=== PATIENT | male | born 1950 | race Two or more races ===

== ENCOUNTER 2024-08-09 09:39 | Emergency (ER) | payer OTHER, MEDICAID ==
[~2024-08-09] VITALS: Ht 180.3 cm; Wt 64.6 kg
[~2024-08-09 09:39] MED LIST: AMIO200T33 PO; PRAV20TA3 PO; RIV20T PO
--- NOTE | 2024-08-09 11:06 | ED.PDOC ---
GI ASSESSMENT HPI Comments 73-year-old male with PMHx A-Fib presents with a chief complaint of constipation x 2 weeks with associated abdomen pain. Patient states that his pain is localized to his diffuse abdomen, nonradiating, and rates his pain 9/10 at this time. Patient mentions that he has been using fleet enemas, laxatives, and Metamucil, but states that he has not been able to pass stool. Patient denies use of narcotic pain medication. No other symptoms or modifying factors present at this time. Chief Complaint: Constipation Time Seen by MD: 10:45 Primary Care Provider: DENISE Warner Notes: Medications, Allergies Allergies: Uncoded Allergies: NONE (Allergy, Unknown, 04/24/24) Home Meds Reported Medications Pravastatin Sodium (PRAVACHOL TABLET) 20 Mg Tb, 1 TAB PO DAILY for HIGH CHOLESTEROL, #30 TAB 5 Refills 04/24/24 Amiodarone Hcl (Amiodarone Hcl) 200 Mg Tab, 200 MG PO DAILY for ARRHYTHMIA 04/24/24 Rivaroxaban (Xarelto Tablet) 20 Mg Tb, 20 MG PO DAILY for A. FIB, TAB 04/24/24 Information Source: Patient Mode of Arrival: Ambulatory Timing: Days Duration: Since onset Prehospital treatment: None Quality: Sharp Vomitus: None Stool: Impaction Severity: Moderate Recent: None Recent Hx of: Abdominal Surgery (HERNIA SURGERY) Pain Location: Diffuse Associated sign and symptoms: Constipation, Abdominal Pain Past Medical History PAST MEDICAL HISTORY: AFIB Past Medical History (Other): BOWEL BLOCKAGE Surgical History: Denies all surgeries Family History Family History: Reviewed,noncontributory to illness Social History Smoker: Non-Smoker Alcohol: Denies ETOH Use Drugs: Denies Drug Use Lives In: Home Constitutional: denies: chills, diaphoresis, fatigue, fever, malaise, sweats, weakness, others EENTM: denies: blurred vision, double vision, ear bleeding, ear discharge, ear drainage, ear pain, ear ringing, eye pain, eye redness, hearing loss, mouth pain, mouth swelling, nasal discharge, nose bleeding, nose congestion, nose pain, photophobia, tearing, throat pain, throat swelling, voice changes, others Respiratory: denies: cough, hemoptysis, orthopnea, SOB at rest, shortness of breath, SOB with excertion, stridor, wheezing, others Cardiovascular: denies: chest pain, dizzy spells, diaphoresis, Dyspnea on exertion, edema, irregular heart beat, left arm pain, lightheadedness, palpitations, PND, syncope, others Gastrointestinal: reports: abdominal pain, constipated; denies: abdomen distended, blood streaked bowels, diarrhea, dysphagia, difficulty swallowing, hematemesis, melena, nausea, poor appetite, poor fluid intake, rectal bleeding, rectal pain, vomiting, others Genitourinary: denies: burning, dysuria, flank pain, frequency, hematuria, incontinence, penile discharge, penile sore, pain, testicle pain, testicle swelling, urgency, others Neurological: denies: dizziness, fainting, headache, left sided numbness, left sided weakness, numbness, paresthesia, pre-existing deficit, right sided numbness, right sided weakness, seizure, speech problems, tingling, tremors, weakness, others Musculoskeletal: denies: back pain, gout, joint pain, joint swelling, muscle pain, muscle stiffness, neck pain, others Integumetry: denies: bruises, change in color, change in hair/nails, dryness, laceration, lesions, lumps, rash, wounds, others Allergic/Immunocompromised: denies: Difficulty Healing, Frequent Infections, Hives, Itching, others Hematologic/Lymphatic: denies: anemia, blood clots, easy bleeding, easy bruising, swollen glands, others Endocrine: denies: excessive hunger, excessive sweating, excessive thirst, excessive urination, flushing, intolerance to cold, intolerance to heat, unexplained weight gain, unexplained weight loss, others Psychiatric: denies: anxiety, bipolar disorder, depression, hopeless, panic disorder, schizophrenia, sleepless, suicidal, others All Other Systems: Reviewed and Negative Physical Exam General Appearance: Moderate Distress, Normal HEENT: Normal ENT Inspection, Pharynx Normal, TMs Normal Neck: Full Range of Motion, Non-Tender, Normal, Normal Inspection Respiratory: Chest Non-Tender, Lungs Clear, No Accessory Muscle Use, No Respiratory Distress, Normal Breath Sounds Cardiovascular: No Edema, No JVD, No Murmur, No Gallop, Normal Peripheral Pulses, Regular Rate/Rhythm Breast Exam: Deferred Gastrointestinal: No Organomegaly, Non Tender, No Pulsatile Mass, Normal Bowel Sounds, Soft Genitalia: Deferred Pelvic: Deferred Rectal: Deferred Extremities: No calf tenderness, Normal capillary refill, Normal inspection, Normal range of motion, Non-tender, No pedal edema Musculoskeletal : Apperance: Normal Neurologic: Alert, 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 Was a procedure done?: No GI differential Dx Differential Diagnosis: Constipation, Diverticular disease, Esophagitis, Gastritis/PUD, Gastroenteritis X-Ray, Labs, Meds, VS Vital Signs Date Time Temp Pulse Resp B/P (MAP) Pulse Ox O2 Delivery O2 Flow Rate FiO2 08/09/24 09:57 98.6 94 16 155/82 (106) 98 Lab Test 08/09/24 10:41 Range/Units White Blood Count 8.4 4.4-10.8 10^3/uL Red Blood Count 4.77 4.5-5.90 10^6/uL Hemoglobin 13.9 13.5-17.5 g/dL Hematocrit 41.1 41.0-53.0 % Mean Corpuscular Volume 86.2 80.0-100.0 fL Mean Corpuscular Hemoglobin 29.2 28.0-32.0 pg Mean Corpuscular Hemoglobin Concent 33.9 32.0-36.0 g/dL Red Cell Distribution Width 15.6 H 11.8-14.3 % Platelet Count 300 140-450 10^3/uL Mean Platelet Volume 8.0 6.9-10.8 fL Neutrophils (%) (Auto) 82.6 H 37.0-80.0 % Lymphocytes (%) (Auto) 10.9 10.0-50.0 % Monocytes (%) (Auto) 5.8 0.0-12.0 % Eosinophils (%) (Auto) 0.4 0.0-7.0 % Basophils (%) (Auto) 0.3 0.0-2.0 % Neutrophils # (Auto) 6.9 1.6-8.6 10 ^3/uL Lymphocytes # (Auto) 0.9 0.4-5.4 10 ^3/uL Monocytes # (Auto) 0.5 0-1.3 10 ^3/uL Eosinophils # (Auto) 0 0-0.8 10 ^3/uL Basophils # (Auto) 0 0-0.2 10 ^3/uL Nucleated Red Blood Cells 0.0 % Sodium Level 141 136-145 mmol/L Potassium Level 4.3 3.5-5.1 mmol/L Chloride Level 103 98-107 mmol/L Carbon Dioxide Level 27 20-31 mmol/L Anion Gap 11 5-15 Blood Urea Nitrogen 10 9-23 mg/dL Creatinine 1.17 0.700-1.30 mg/dL Glomerular Filtration Rate Calc 65 >90 mL/min BUN/Creatinine Ratio 8.5 L 10.0-20.0 Serum Glucose 110 H 74-106 mg/dL Calcium Level 10.3 8.7-10.4 mg/dL Patient alert. Complaining of not having a bowel movement. Recently had inguinal surgery. Vitals stable. Abdomen is soft. WBC within normal limits. Hemoglobin within normal limits. Continue monitoring. KUB does not show any acute process. Constipation. WBC within normal limits. Was given prescription of Colace Flagyl. On re-evaluation Abdomen is soft nontender. No sign of distress. No leg swelling. No shortness a breath. Explained to the patient. Was told to follow up with his primary care physician. Was told to come back if there is any problem. Time of 1ST Reevaluation: 11:15 Reevaluation 1ST: Improved Time of 2ND Reevaluation: 13:12 Reevaluation 2ND: Improved Patient Education/Counseling: Diagnosis, Treatment, Prognosis Family Education/Counseling: Diagnosis, Treatment, Prognosis Departure 1 Departure Time of Disposition: 11:35 Impression: Primary Impression: Constipation Qualified Codes: K59.01 - Slow transit constipation Disposition: 01 HOME / SELF CARE / HOMELESS Condition: Good e-Prescriptions Docusate Sodium (Colace) 100 Mg Cap 1 CAP PO BID for 3 Days, #6 CAP Prov: DOLLY ARANA MD 08/09/24 Metronidazole (Flagyl) 500 Mg Tab 1 TAB PO TID for 5 Days, #15 TAB Prov: DOLLY ARANA MD 08/09/24 Discharged With: Self Critical Care Note Critical Care Time?: No Stability Stability form required: No Heart Score Heart Score: Heart Score Response (Comments) Value History N/A 0 EKG N/A 0 Age N/A 0 Risk Factors N/A 0 Troponin N/A 0 Total 0 I personally scribed for DOLLY ARANA MD ([email or web address]) on 08/09/24 at 11:06. Electronically submitted by Baldev Sheth [email or web address]). DOLLY ARANA MD Aug 09, 2024 11:06
[2024-08-09 11:17] LABS: Basophils # (auto) 0 10 ^3/uL (0-0.2); Basophils % (auto) 0.3 % (0.0-2.0); Eosinophils # (auto) 0 10 ^3/uL (0-0.8); Eosinophils % (auto) 0.4 % (0.0-7.0); Hematocrit 41.1 % (41.0-53.0); Hemoglobin 13.9 g/dL (13.5-17.5); Lymphocytes # (auto) 0.9 10 ^3/uL (0.4-5.4); Lymphocytes % (auto) 10.9 % (10.0-50.0); Mean Corpuscular Hemoglobin 29.2 pg (28.0-32.0); Mean Corpuscular Hgb Conc. 33.9 g/dL (32.0-36.0); Mean Corpuscular Volume 86.2 fL (80.0-100.0); Monocytes # (auto) 0.5 10 ^3/uL (0-1.3); Monocytes % (auto) 5.8 % (0.0-12.0); Neutrophils # (auto) 6.9 10 ^3/uL (1.6-8.6); Neutrophils % (auto) 82.6 % (37.0-80.0); Platelet Count (auto) 300 10^3/uL (140-450); Red Blood Cells 4.77 10^6/uL (4.5-5.90); Red Cell Distribution Width 15.6 % (11.8-14.3); White Blood Cell 8.4 10^3/uL (4.4-10.8)
[2024-08-09 11:33] LABS: Chloride 103 mmol/L (98-107); Potassium 4.3 mmol/L (3.5-5.1); Sodium 141 mmol/L (136-145)
[2024-08-09 11:34] LABS: Anion Gap 11 (5-15); Calcium 10.3 mg/dL (8.7-10.4); Carbon Dioxide 27 mmol/L (20-31)
[2024-08-09 11:39] LABS: BUN/Creatinine Ratio 8.5 (10.0-20.0); Blood Urea Nitrogen 10 mg/dL (9-23)
[2024-08-09 11:40] LABS: Glucose 110 mg/dL (74-106)
--- NOTE | 2024-08-09 12:10 | DVH ---
Date: 08/09/2024 11:44 AM Examination: XY KUB ABDOMEN SINGLE VIEW History: contipation Comparison: None TECHNIQUE: Frontal views of the abdomen was obtained. FINDINGS: Bowel gas pattern is unremarkable. The lung bases are unremarkable. No acute osseous abnormality identified. IMPRESSION: Nonobstructive bowel gas pattern. Large stool burden.
[2024-08-09] MEDS ORDERED: METR-344 PO (13:14)
[2024-08-09] MEDS ORDERED: DOCU-94 PO (13:14)
[2024-08-09] MEDS: DOCUSATE SOD 100 MG CAP PO ONE (14:17)
[2024-08-09 14:18] VITALS: BP 134/77; PULSE 78; RESP 17; TEMP 98.8; O2SAT 99
== END 2024-08-09 14:21 | disposition home or self-care (01) ==
LOC: ER 09:39
DX: K59.00 Constipation, unspecified (principal); Z79.01 Long term (current) use of anticoagulants; Z79.899 Other long term (current) drug therapy
CPT/HCPCS: 36415; 74018; 80048; 85025

== ENCOUNTER 2024-08-19 08:35 | Emergency (ER) | payer OTHER, MEDICAID ==
[~2024-08-19] VITALS: Ht 180.3 cm; Wt 68.9 kg
[~2024-08-19 08:35] MED LIST changes: +DOCU-94 PO; +METR-344 PO
[2024-08-19] MEDS ORDERED: AZITHROMYCIN 250 MG TAB PO ONE (08:45)
[2024-08-19] MEDS ORDERED: methylPREDNISolone SOD SUCC 125 MG/2 ML VL IV ONE (08:45)
[2024-08-19] MEDS ORDERED: ALBUTEROL SULF 2.5 MG/0.5ML(0.5%) NEB SOLN NEB ONE (08:45)
[2024-08-19] MEDS ORDERED: IPRATROPIUM BROM 0.5 MG/2.5ML INH SOL NEB ONE (08:45)
[2024-08-19 08:56] VITALS: RESP 18
[2024-08-19] MEDS: IOHEXOL 300 MG/ML 100ML BOTTLE IJ ONE (09:04)
[2024-08-19 09:16] LABS: Basophils # (auto) 0 10 ^3/uL (0-0.2); Basophils % (auto) 0.5 % (0.0-2.0); Eosinophils # (auto) 0.2 10 ^3/uL (0-0.8); Eosinophils % (auto) 3.3 % (0.0-7.0); Hematocrit 42.5 % (41.0-53.0); Hemoglobin 14.4 g/dL (13.5-17.5); Lymphocytes # (auto) 1.1 10 ^3/uL (0.4-5.4); Lymphocytes % (auto) 14.1 % (10.0-50.0); Mean Corpuscular Hemoglobin 29.4 pg (28.0-32.0); Mean Corpuscular Hgb Conc. 33.8 g/dL (32.0-36.0); Mean Corpuscular Volume 86.7 fL (80.0-100.0); Monocytes # (auto) 0.6 10 ^3/uL (0-1.3); Monocytes % (auto) 8.3 % (0.0-12.0); Neutrophils # (auto) 5.5 10 ^3/uL (1.6-8.6); Neutrophils % (auto) 73.8 % (37.0-80.0); Nucleated Red Blood Cells % 0.2 %; Platelet Count (auto) 371 10^3/uL (140-450); Red Cell Distribution Width 16.2 % (11.8-14.3); White Blood Cell 7.5 10^3/uL (4.4-10.8)
--- NOTE | 2024-08-19 09:22 | DVH ---
EXAM: XY CHEST PORTABLE Indication: sob Technique: Single frontal view of the chest was obtained Comparison: None FINDINGS: Lines and Tubes: None Lungs: No focal consolidation. Pleura: No effusion. No pneumothorax. Cardiomediastinal contours: Unremarkable Bones: No acute osseous abnormality. IMPRESSION: No acute cardiopulmonary disease.
[2024-08-19 09:29] LABS: Chloride 107 mmol/L (98-107); Sodium 140 mmol/L (136-145)
[2024-08-19 09:30] LABS: Anion Gap 8 (5-15); Calcium 10.1 mg/dL (8.7-10.4); Carbon Dioxide 25 mmol/L (20-31)
[2024-08-19 09:35] VITALS: TEMP 98.6
[2024-08-19 09:35] LABS: BUN/Creatinine Ratio 8.5 (10.0-20.0); Blood Urea Nitrogen 9 mg/dL (9-23); Glucose 126 mg/dL (74-106); Potassium 3.4 mmol/L (3.5-5.1)
[2024-08-19] MEDS: SODIUM CHLORIDE 0.9% 1,000 ML IV ONE (09:37)
[2024-08-19] MEDS: ONDANSETRON HCL 4 MG/2 ML VIAL IV ONE (09:37)
[2024-08-19] MEDS: MORPHINE SULFATE 4 MG/ML SYR/VIAL IV ONE (09:38)
--- NOTE | 2024-08-19 10:40 | DVH ---
Exam: CT CT AB PEL WITH IV CON ONLY History: abdominal pain COMPARISON: None Technique: Multidetector spiral CT of the abdomen and pelvis was performed from lung bases to pubic symphysis. Intravenous contrast was administered during this examination. Portal venous imaging was obtained. Axial, coronal and sagittal multiplanar reformats were performed by the technologist on a separate workstation. Radiation Dose : Abdomen/Pelvis: CTDIvol 7.02 mGy, DLP 381.53 mGy*cm. CONTRAST: Type of contrast: Omni 300 Contrast injected: 100 mL Findings: Lung Bases: No acute or significant lung base finding. Normal heart size. No pleural or pericardial effusion. Liver: The liver is normal in size. No focal lesions. Normal hepatic vascular enhancement. Gallbladder and biliary Tree: Unremarkable Spleen: Unremarkable Pancreas: The pancreas is normal in appearance without focal lesions or abnormal enhancement. Adrenal Glands: Unremarkable Kidneys: Heterogeneously enhancing mass lower pole of the right kidney measuring up to 111 mm. No d efinite vascular invasion. No hydronephrosis. Right upper pole renal cyst also noted. Bladder: Unremarkable Bowel: The stomach is grossly normal in appearance. Small bowel and colon are normal in caliber and d istribution. The appendix is not visualized; however, no secondary findings of acute appendicitis marimar ntified. Ascites: Absent Lymphadenopathy: No mesenteric, retroperitoneal or periportal lymphadenopathy. Abdominal wall and Mesentery: Unremarkable. Vasculature: The visualized abdominal aorta is normal in size and caliber. There is calcified atheros clerotic plaque involving the aorta and its branches. Abdominal and pelvic vessels demonstrate normal enhancement. Pelvic Organs: Unremarkable Musculoskeletal: No aggressive focal bony lesions, acute fractures or dislocation. IMPRESSION: 1. Large suspicious right renal mass measuring up to 111 mm concerning for renal cell carcinoma. Uro logy evaluation and resection is recommended. Lesion would be amenable to CT-guided biopsy if clinica lly indicated. Radiation optimization: All CT scans at this facility use at least one of these dose optimization vicky hniques: Automated exposure control mA and/or kV adjustment per patient size (includes targeted exams where dose is matched to clinical indication) or iterative reconstruction. HS:Y
--- NOTE | 2024-08-19 10:43 | ED.PDOC ---
GI ASSESSMENT HPI Comments 73-year-old male with PMHx A-Fib presents with a chief complaint of abdominal pain x 2 weeks with associated constipation. Patient states that he has been "blocked" for 2 weeks. Patient mentions that he was seen here two weeks ago by Dr. Arana and was only prescribed colace with no CT scan. Patient mentions that he took the Colace and also took Ex-Lax and Lactulose, but still has not had a bowel movement. Patient reports that he "cannot eat, cannot sleep, I am just miserable". No other symptoms or modifying factors present at this time. Chief Complaint: Abdominal Pain Time Seen by MD: 10:35 Primary Care Provider: DENISE Warner Notes: Medications, Allergies Allergies: Coded Allergies: No Known Drug Allergy (Verified Allergy, Unknown, 08/19/24) Uncoded Allergies: NONE (Allergy, Unknown, 04/24/24) Home Meds Active Scripts Lactulose (Lactulose) 10 Gm/15 Ml Ale, 20 GM PO TID, #500 ML take it 3 times a day till you have good bowel movements then take it as needed for constipation Prov:VERNON VALDEZ MD 08/19/24 Docusate Sodium (Colace) 100 Mg Cap, 1 CAP PO BID for 3 Days, #6 CAP Prov:DOLLY ARANA MD 08/09/24 Metronidazole (Flagyl) 500 Mg Tab, 1 TAB PO TID for 5 Days, #15 TAB Prov:DOLLY ARANA MD 08/09/24 Reported Medications Pravastatin Sodium (PRAVACHOL TABLET) 20 Mg Tb, 1 TAB PO DAILY for HIGH CHOLESTEROL, #30 TAB 5 Refills 04/24/24 Amiodarone Hcl (Amiodarone Hcl) 200 Mg Tab, 200 MG PO DAILY for ARRHYTHMIA 04/24/24 Rivaroxaban (Xarelto Tablet) 20 Mg Tb, 20 MG PO DAILY for A. FIB, TAB 04/24/24 Information Source: Patient Mode of Arrival: Ambulatory Timing: Weeks Duration: Intermittent Prehospital treatment: None Quality: Aching Vomitus: None Stool: Impaction Severity: Moderate Recent: Laxative Use Recent Hx of: Constipation Pain Location: Diffuse Associated sign and symptoms: Constipation Past Medical History PAST MEDICAL HISTORY: AFIB Surgical History: Denies all surgeries Family History Family History: Reviewed,noncontributory to illness Social History Smoker: Non-Smoker Alcohol: Denies ETOH Use Drugs: Denies Drug Use Lives In: Home Constitutional: denies: chills, diaphoresis, fatigue, fever, malaise, sweats, weakness, others EENTM: denies: blurred vision, double vision, ear bleeding, ear discharge, ear drainage, ear pain, ear ringing, eye pain, eye redness, hearing loss, mouth pain, mouth swelling, nasal discharge, nose bleeding, nose congestion, nose pain, photophobia, tearing, throat pain, throat swelling, voice changes, others Respiratory: denies: cough, hemoptysis, orthopnea, SOB at rest, shortness of breath, SOB with excertion, stridor, wheezing, others Cardiovascular: denies: chest pain, dizzy spells, diaphoresis, Dyspnea on exertion, edema, irregular heart beat, left arm pain, lightheadedness, palpitations, PND, syncope, others Gastrointestinal: reports: abdominal pain, constipated; denies: abdomen distended, blood streaked bowels, diarrhea, dysphagia, difficulty swallowing, hematemesis, melena, nausea, poor appetite, poor fluid intake, rectal bleeding, rectal pain, vomiting, others Genitourinary: denies: burning, dysuria, flank pain, frequency, hematuria, incontinence, penile discharge, penile sore, pain, testicle pain, testicle swelling, urgency, others Neurological: denies: dizziness, fainting, headache, left sided numbness, left sided weakness, numbness, paresthesia, pre-existing deficit, right sided numbness, right sided weakness, seizure, speech problems, tingling, tremors, weakness, others Musculoskeletal: denies: back pain, gout, joint pain, joint swelling, muscle pain, muscle stiffness, neck pain, others Integumetry: denies: bruises, change in color, change in hair/nails, dryness, laceration, lesions, lumps, rash, wounds, others Allergic/Immunocompromised: denies: Difficulty Healing, Frequent Infections, Hives, Itching, others Hematologic/Lymphatic: denies: anemia, blood clots, easy bleeding, easy bruising, swollen glands, others Endocrine: denies: excessive hunger, excessive sweating, excessive thirst, excessive urination, flushing, intolerance to cold, intolerance to heat, unexplained weight gain, unexplained weight loss, others Psychiatric: denies: anxiety, bipolar disorder, depression, hopeless, panic disorder, schizophrenia, sleepless, suicidal, others All Other Systems: Reviewed and Negative Physical Exam General Appearance: No Apparent Distress, Normal HEENT: Normal ENT Inspection, Pharynx Normal, TMs Normal Neck: Full Range of Motion, Non-Tender, Normal, Normal Inspection Respiratory: Chest Non-Tender, Lungs Clear, No Accessory Muscle Use, No Respiratory Distress, Normal Breath Sounds Cardiovascular: No Edema, No JVD, No Murmur, No Gallop, Normal Peripheral Pulses, Regular Rate/Rhythm Breast Exam: Deferred Gastrointestinal: Diffuse, No Organomegaly, No Pulsatile Mass, Normal Bowel Sounds, Soft, Tenderness Genitalia: Deferred Pelvic: Deferred Rectal: Deferred Extremities: No calf tenderness, Normal capillary refill, Normal inspection, Normal range of motion, Non-tender, No pedal edema Musculoskeletal : Apperance: Normal Neurologic: Alert, 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 Was a procedure done?: No GI differential Dx Differential Diagnosis: Bowel Obstruction, Constipation, Inflammatory BD, I schemic Bowel, Trauma intraabdominal, Dehydration, Electrolyte Imbalance, Bacterial X-Ray, Labs, Meds, VS Vital Signs Date Time Temp Pulse Resp B/P (MAP) Pulse Ox O2 Delivery O2 Flow Rate FiO2 08/19/24 12:38 81 15 140/83 (102) 96 08/19/24 10:03 77 16 152/77 (102) 100 08/19/24 10:02 77 16 152/77 08/19/24 09:38 89 14 159/84 08/19/24 09:35 98.6 89 14 159/84 (109) 96 98.6 08/19/24 09:16 96 17 100 Room Air 08/19/24 09:16 98.6 96 17 140/80 (100) 100 98.6 08/19/24 08:56 18 Room Air* 0 21 08/19/24 08:47 85 08/19/24 08:40 98.3 98 18 184/88 (120) 99 Lab Test 08/19/24 08:57 08/19/24 08:44 Range/Units White Blood Count 7.5 4.4-10.8 10^3/uL Red Blood Count 4.90 4.5-5.90 10^6/uL Hemoglobin 14.4 13.5-17.5 g/dL Hematocrit 42.5 41.0-53.0 % Mean Corpuscular Volume 86.7 80.0-100.0 fL Mean Corpuscular Hemoglobin 29.4 28.0-32.0 pg Mean Corpuscular Hemoglobin Concent 33.8 32.0-36.0 g/dL Red Cell Distribution Width 16.2 H 11.8-14.3 % Platelet Count 371 140-450 10^3/uL Mean Platelet Volume 7.7 6.9-10.8 fL Neutrophils (%) (Auto) 73.8 37.0-80.0 % Lymphocytes (%) (Auto) 14.1 10.0-50.0 % Monocytes (%) (Auto) 8.3 0.0-12.0 % Eosinophils (%) (Auto) 3.3 0.0-7.0 % Basophils (%) (Auto) 0.5 0.0-2.0 % Neutrophils # (Auto) 5.5 1.6-8.6 10 ^3/uL Lymphocytes # (Auto) 1.1 0.4-5.4 10 ^3/uL Monocytes # (Auto) 0.6 0-1.3 10 ^3/uL Eosinophils # (Auto) 0.2 0-0.8 10 ^3/uL Basophils # (Auto) 0 0-0.2 10 ^3/uL Nucleated Red Blood Cells 0.2 % Sodium Level 140 136-145 mmol/L Potassium Level 3.4 L 3.5-5.1 mmol/L Chloride Level 107 98-107 mmol/L Carbon Dioxide Level 25 20-31 mmol/L Anion Gap 8 5-15 Blood Urea Nitrogen 9 9-23 mg/dL Creatinine 1.06 0.700-1.30 mg/dL Glomerular Filtration Rate Calc 74 >90 mL/min BUN/Creatinine Ratio 8.5 L 10.0-20.0 Serum Glucose 126 H 74-106 mg/dL Calcium Level 10.1 8.7-10.4 mg/dL Troponin I High Sensitivity 30 </=54 ng/L POC Glucose 117 H 70-106 mg/dl Current Medications Medications (Trade) Dose Ordered Sig/Fady Route Start Time Stop Time Status Last Admin Sodium Chloride 1,000 ml @ 1,000 mls/hr Q1H ONCE IV 08/19/24 09:15 08/19/24 10:14 DC 08/19/24 09:37 Ondansetron HCl (Zofran) 4 mg ONCE ONCE IV 08/19/24 09:15 08/19/24 09:34 DC 08/19/24 09:37 Morphine Sulfate 4 mg ONCE ONCE IV 08/19/24 09:15 08/19/24 09:34 DC 08/19/24 09:38 Polyethylene Glycol/ Electrolytes (Golytely) 1 kit ONCE ONCE PO 08/19/24 11:30 08/19/24 11:31 DC 08/19/24 11:51 Time of 1ST Reevaluation: 11:05 Reevaluation 1ST: Unchanged Patient Education/Counseling: Diagnosis, Treatment, Prognosis Family Education/Counseling: Diagnosis, Treatment, Prognosis Departure 1 Departure Time of Disposition: 17:27 (Patient presented with abdominal pain that was concerning for possible appendicits, gastritis, cholecystitis, colitis, gastroenteritis, or orther possible surgical emergency. Data: 1. I ordered and reviewed the result of at least 3 labs including a CBC, BMP, and Urinalysis. 2. I independently interpreted the following tests: CT Abdoment and Pelvis is concerning for malignancy .Risk:This patient has a high risk of morbidity due to further diagnostic testing or treatment and may suffer from an acute abdominal process disorder. Fortunately workup reveals malignancy that is known to patient as well as constipation and discussed the case with Dr. MORGAN and patient can be safely discharged to home with outpatient follow up.) Impression: Primary Impression: Acute abdominal pain Additional Impressions: Constipation Qualified Codes: K59.00 - Constipation, unspecified Kidney mass Disposition: HOME / SELF CARE / HOMELESS Condition: Stable e-Prescriptions Lactulose (Lactulose) 10 Gm/15 Ml Ale 20 GM PO TID, #500 ML take it 3 times a day till you have good bowel movements then take it as needed for constipation Prov: VERNON VALDEZ MD 08/19/24 Critical Care Note Critical Care Time?: No Stability Stability form required: No I personally scribed for OTIS VILLALOBOS MD ([email or web address]) on 08/19/24 at 10:43. Electronically submitted by Baldev Sheth ([email or web address]). OTIS VILLALOBOS MD Aug 19, 2024 10:43
[2024-08-19] MEDS ORDERED: FLEET ENEMA(ADULT) 135 ML PR ONE (11:30)
[2024-08-19] MEDS: GOLYTELY 4L KIT PO ONE (11:51)
[2024-08-19] MEDS ORDERED: LACT10SO3 PO (12:33)
[2024-08-19 12:38] VITALS: BP 140/83; PULSE 81; RESP 15; O2SAT 96
== END 2024-08-19 13:13 | disposition home or self-care (01) ==
LOC: ER 08:35
DX: K59.00 Constipation, unspecified (principal); N28.89 Other specified disorders of kidney and ureter; I48.91 Unspecified atrial fibrillation; Z79.01 Long term (current) use of anticoagulants; Z79.899 Other long term (current) drug therapy
CPT/HCPCS: 36415; 71045; 74177; 80048; 82962; 84484; 85025; 96361; 96374; 96375; 99285; J2270; J2405; J7030; Q9967

== ENCOUNTER 2024-08-21 19:32 | Inpatient (IN) | payer OTHER, MEDICAID ==
[~2024-08-21] VITALS: Ht 180.3 cm; Wt 70.2 kg
[~2024-08-21 19:32] MED LIST changes: +LACT10SO3 PO
--- NOTE | 2024-08-21 20:14 | ED.PDOC ---
GI ASSESSMENT HPI Comments 73 y/o M, with PMHX of HTN, AFib, and HLD presents to the ED for CC of abdominal pain. Patient states, that he has been experiencing RLQ abdominal pain with associated right kidney pain xdays. 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 Patient complains of current 03/21 pain. Patient denies hematuria, dysuria, nausea, vomiting, or diarrhea. No other symptoms or modifying factors present at this time. Chief Complaint: Abdominal Pain Time Seen by MD: 19:35 Primary Care Provider: DENISE Warner Notes: Nurses Notes, Medications, Allergies Allergies: Coded Allergies: No Known Drug Allergy (Verified Allergy, Unknown, 08/19/24) Uncoded Allergies: NONE (Allergy, Unknown, 04/24/24) Home Meds Active Scripts Lactulose (Lactulose) 10 Gm/15 Ml Ale, 20 GM PO TID, #500 ML take it 3 times a day till you have good bowel movements then take it as needed for constipation Prov:VERNON VALDEZ MD 08/19/24 Docusate Sodium (Colace) 100 Mg Cap, 1 CAP PO BID for 3 Days, #6 CAP Prov:DOLLY ARANA MD 08/09/24 Metronidazole (Flagyl) 500 Mg Tab, 1 TAB PO TID for 5 Days, #15 TAB Prov:DOLLY ARANA MD 08/09/24 Reported Medications Pravastatin Sodium (PRAVACHOL TABLET) 20 Mg Tb, 1 TAB PO DAILY for HIGH CHOLESTEROL, #30 TAB 5 Refills 04/24/24 Amiodarone Hcl (Amiodarone Hcl) 200 Mg Tab, 200 MG PO DAILY for ARRHYTHMIA 04/24/24 Rivaroxaban (Xarelto Tablet) 20 Mg Tb, 20 MG PO DAILY for A. FIB, TAB 04/24/24 Information Source: Patient Mode of Arrival: Ambulatory Timing: Days Duration: Since onset Prehospital treatment: None Quality: None Vomitus: None Stool: Impaction Severity: None Recent: None Recent Hx of: None Pain Location: RLQ Modifying Factors: Nothing Associated sign and symptoms: Constipation Past Medical History PAST MEDICAL HISTORY: AFIB, High Lipids, HTN Surgical History: Hernia Repair Family History Family History: Reviewed,noncontributory to illness Social History Smoker: Non-Smoker Alcohol: Occasionally Drugs: Marijuana Lives In: Home Constitutional: denies: chills, diaphoresis, fatigue, fever, malaise, sweats, weakness, others EENTM: denies: blurred vision, double vision, ear bleeding, ear discharge, ear drainage, ear pain, ear ringing, eye pain, eye redness, hearing loss, mouth pain, mouth swelling, nasal discharge, nose bleeding, nose congestion, nose pain, photophobia, tearing, throat pain, throat swelling, voice changes, others Respiratory: denies: cough, hemoptysis, orthopnea, SOB at rest, shortness of breath, SOB with excertion, stridor, wheezing, others Cardiovascular: denies: chest pain, dizzy spells, diaphoresis, Dyspnea on exertion, edema, irregular heart beat, left arm pain, lightheadedness, palpitations, PND, syncope, others Gastrointestinal: reports: abdominal pain; denies: abdomen distended, blood streaked bowels, constipated, diarrhea, dysphagia, difficulty swallowing, hematemesis, melena, nausea, poor appetite, poor fluid intake, rectal bleeding, rectal pain, vomiting, others Genitourinary: denies: burning, dysuria, flank pain, frequency, hematuria, incontinence, penile discharge, penile sore, pain, testicle pain, testicle swelling, urgency, others Neurological: denies: dizziness, fainting, headache, left sided numbness, left sided weakness, numbness, paresthesia, pre-existing deficit, right sided numbness, right sided weakness, seizure, speech problems, tingling, tremors, weakness, others Musculoskeletal: reports: back pain; denies: gout, joint pain, joint swelling, muscle pain, muscle stiffness, neck pain, others Integumetry: denies: bruises, change in color, change in hair/nails, dryness, laceration, lesions, lumps, rash, wounds, others Allergic/Immunocompromised: denies: Difficulty Healing, Frequent Infections, Hives, Itching, others Hematologic/Lymphatic: denies: anemia, blood clots, easy bleeding, easy bruising, swollen glands, others Endocrine: denies: excessive hunger, excessive sweating, excessive thirst, excessive urination, flushing, intolerance to cold, intolerance to heat, unexplained weight gain, unexplained weight loss, others Psychiatric: denies: anxiety, bipolar disorder, depression, hopeless, panic disorder, schizophrenia, sleepless, suicidal, others All Other Systems: Reviewed and Negative Physical Exam General Appearance: Moderate Distress HEENT: Normal ENT Inspection, Pharynx Normal, TMs Normal Neck: Full Range of Motion, Non-Tender, Normal, Normal Inspection Respiratory: Chest Non-Tender, Lungs Clear, No Accessory Muscle Use, No Respiratory Distress, Normal Breath Sounds Cardiovascular: No Edema, No JVD, No Murmur, No Gallop, Normal Peripheral Pulses, Regular Rate/Rhythm Breast Exam: Deferred Gastrointestinal: No Organomegaly, Non Tender, No Pulsatile Mass, Normal Bowel Sounds, Soft Genitalia: Deferred Pelvic: Deferred Rectal: Deferred Extremities: No calf tenderness, Normal capillary refill, Normal inspection, Normal range of motion, Non-tender, No pedal edema Musculoskeletal : Apperance: Normal Neurologic: Alert, java software II-XII nml as Tested, No Motor Deficits, Normal Affect, Normal Mood, No Sensory Deficits Cerebellar Function: Normal Reflexes: Normal Skin: Dry, Normal Color, Warm Lymphatic: No Adenopathy Was a procedure done? Was a procedure done?: No GI differential Dx Differential Diagnosis: Bowel Obstruction, Constipation X-Ray, Labs, Meds, VS Vital Signs Date Time Temp Pulse Resp B/P (MAP) Pulse Ox O2 Delivery O2 Flow Rate FiO2 08/21/24 19:49 98.8 85 14 165/97 (119) 97 Lab Test 08/21/24 20:17 Range/Units White Blood Count 7.8 4.4-10.8 10^3/uL Red Blood Count 4.49 L 4.5-5.90 10^6/uL Hemoglobin 13.1 L 13.5-17.5 g/dL Hematocrit 38.8 L 41.0-53.0 % Mean Corpuscular Volume 86.3 80.0-100.0 fL Mean Corpuscular Hemoglobin 29.1 28.0-32.0 pg Mean Corpuscular Hemoglobin Concent 33.7 32.0-36.0 g/dL Red Cell Distribution Width 16.2 H 11.8-14.3 % Platelet Count 304 140-450 10^3/uL Mean Platelet Volume 7.3 6.9-10.8 fL Neutrophils (%) (Auto) 70.9 37.0-80.0 % Lymphocytes (%) (Auto) 16.7 10.0-50.0 % Monocytes (%) (Auto) 9.7 0.0-12.0 % Eosinophils (%) (Auto) 2.1 0.0-7.0 % Basophils (%) (Auto) 0.6 0.0-2.0 % Neutrophils # (Auto) 5.5 1.6-8.6 10 ^3/uL Lymphocytes # (Auto) 1.3 0.4-5.4 10 ^3/uL Monocytes # (Auto) 0.8 0-1.3 10 ^3/uL Eosinophils # (Auto) 0.2 0-0.8 10 ^3/uL Basophils # (Auto) 0 0-0.2 10 ^3/uL Nucleated Red Blood Cells 0.1 % Sodium Level 138 136-145 mmol/L Potassium Level 3.5 3.5-5.1 mmol/L Chloride Level 108 H 98-107 mmol/L Carbon Dioxide Level 24 20-31 mmol/L Anion Gap 6 5-15 Blood Urea Nitrogen 8 L 9-23 mg/dL Creatinine 0.98 0.700-1.30 mg/dL Glomerular Filtration Rate Calc 81 >90 mL/min BUN/Creatinine Ratio 8.2 L 10.0-20.0 Serum Glucose 109 H 74-106 mg/dL Calcium Level 9.5 8.7-10.4 mg/dL ABD PEL CT: IMPRESSION: 1. Large suspicious right renal mass measuring up to 111 mm concerning for renal cell carcinoma. Urology evaluation and resection is recommended. Lesion would be amenable to CT-guided biopsy if clinically indicated. Radiation optimization: All CT scans at this facility use at least one of these dose optimization techniques: Automated exposure control mA and/or kV adjustment per patient size (includes targeted exams where dose is matched to clinical indication) or iterative reconstruction. HS:Y ATED BY: MOOSE ALCARAZ MD DICTATED DATE/TIME: 08/19/24 1037 SIGNED BY: MOOSE ALCARAZ MD SIGNED DATE/TIME: 08/19/24 1037 CC: IV Hep-Lock was established The patient was being given morphine 4 mg IV push The patient was given Zofran 4 mg IV push for the nausea The patient's CBC is within normal limits The chemistry panel is within normal limits The patient was being admitted to the hospitalist Images Reviewed?: Images reviewed and evaluated by me Time of 1ST Reevaluation: 21:32 Reevaluation 1ST: Unchanged Patient Education/Counseling: Diagnosis, Treatment, Prognosis Family Education/Counseling: No Family Present Departure 1 Departure Time of Disposition: 21:32 Impression: Primary Impression: Acute abdominal pain Additional Impression: Kidney mass Disposition: ADMITTED INPATIENT Admit to: Med Surg Condition: Fair Critical Care Note Critical Care Time?: No Stability Stability form required: No Heart Score Heart Score: Heart Score Response (Comments) Value History N/A 0 EKG N/A 0 Age N/A 0 Risk Factors N/A 0 Troponin N/A 0 Total 0 I personally scribed for FLORY HALEY MD ([email or web address]) on 08/21/24 at 20:14. Electronically submitted by Marianna Linn [email or web address]). FLORY HALEY MD Aug 21, 2024 20:14
[2024-08-21 20:25] LABS: Basophils # (auto) 0 10 ^3/uL (0-0.2); Basophils % (auto) 0.6 % (0.0-2.0); Eosinophils # (auto) 0.2 10 ^3/uL (0-0.8); Eosinophils % (auto) 2.1 % (0.0-7.0); Hematocrit 38.8 % (41.0-53.0); Hemoglobin 13.1 g/dL (13.5-17.5); Lymphocytes # (auto) 1.3 10 ^3/uL (0.4-5.4); Lymphocytes % (auto) 16.7 % (10.0-50.0); Mean Corpuscular Hemoglobin 29.1 pg (28.0-32.0); Mean Corpuscular Hgb Conc. 33.7 g/dL (32.0-36.0); Mean Corpuscular Volume 86.3 fL (80.0-100.0); Monocytes # (auto) 0.8 10 ^3/uL (0-1.3); Monocytes % (auto) 9.7 % (0.0-12.0); Neutrophils # (auto) 5.5 10 ^3/uL (1.6-8.6); Neutrophils % (auto) 70.9 % (37.0-80.0); Nucleated Red Blood Cells % 0.1 %; Platelet Count (auto) 304 10^3/uL (140-450); Red Blood Cells 4.49 10^6/uL (4.5-5.90); Red Cell Distribution Width 16.2 % (11.8-14.3); White Blood Cell 7.8 10^3/uL (4.4-10.8)
[2024-08-21 20:34] LABS: Sodium 138 mmol/L (136-145)
[2024-08-21 20:35] LABS: Anion Gap 6 (5-15); Calcium 9.5 mg/dL (8.7-10.4); Carbon Dioxide 24 mmol/L (20-31); Chloride 108 mmol/L (98-107); Potassium 3.5 mmol/L (3.5-5.1)
[2024-08-21 20:40] LABS: BUN/Creatinine Ratio 8.2 (10.0-20.0)
[2024-08-21 20:44] LABS: Blood Urea Nitrogen 8 mg/dL (9-23); Glucose 109 mg/dL (74-106)
[2024-08-21] MEDS ORDERED: ACETAMINOPHEN 325 MG TAB PO PRN (21:45)
[2024-08-21 22:03] LABS: INR 1.08 (0.9-1.15); Prothrombin Time 11.4 sec (9.3-11.8)
[2024-08-21] MEDS: ONDANSETRON HCL 4 MG/2 ML VIAL IV ONE (23:08)
[2024-08-21] MEDS: MORPHINE SULFATE 4 MG/ML SYR/VIAL IV ONE (23:08)
[2024-08-21] MEDS: FAMOTIDINE 20 MG TAB PO SCH (23:09)
[2024-08-22] VITALS (10 sets, daily range): BP systolic 121–141; BP diastolic 62–76; PULSE 54–80; RESP 15–18; TEMP 97.6–98; O2SAT 94–99
--- NOTE | 2024-08-22 01:33 | DVHHP2 ---
Admitting Diagnosis: Right Renal Mass, intractable abdominal pain History of Present Illness History Source: Patient Exam Limitations: No limitations HPI Mr. Lin Gil is a 73 yo mal with a past medical history of HTN, AFib, and HLD who presents with a chief complaint of abdominal pain. Patient states, that he has been experiencing RLQ abdominal pain with associated right kidney pain x 14 days. Patient relays, that he was seen at [facility] on 08/19/24 was discharged follow up with urology outpatient for renal mass. Patient was sent from urgent care yesterday to the ED for pain management and further evaluation. Patient CT abdomen and pelvis on 08/19 resulted: 1. Large suspicious right renal mass measuring up to 111 mm concerning for renal cell carcinoma. Urology evalu ation and resection is recommended. Lesion would be amenable to CT-guided biopsy if clinically indicated. Patient reports constipation, poor appetite x 3 weeks with weigh loss of approximately 15-20 lbs. Patient endorses [place] PO provides no pain relief. Patient denies nausea, vomiting, diarrhea, dysuria, hematuria, melena, fevers, chills. Patient admitted for further evaluation and treatment. Home Meds Active Scripts Lactulose (Lactulose) 10 Gm/15 Ml Ale, 20 GM PO TID, #500 ML take it 3 times a day till you have good bowel movements then take it as needed for constipation Prov:VERNON VALDEZ MD 08/19/24 Docusate Sodium (Colace) 100 Mg Cap, 1 CAP PO BID for 3 Days, #6 CAP Prov:DOLLY ARANA MD 08/09/24 Reported Medications Pravastatin Sodium (PRAVACHOL TABLET) 20 Mg Tb, 1 TAB PO DAILY for HIGH CHOLESTEROL, #30 TAB 5 Refills 04/24/24 Amiodarone Hcl (Amiodarone Hcl) 200 Mg Tab, 200 MG PO DAILY for ARRHYTHMIA 04/24/24 Rivaroxaban (Xarelto Tablet) 20 Mg Tb, 20 MG PO DAILY for A. FIB, TAB 04/24/24 Past Medical History Cardiac: AFIB, HTN, Hyperlipidemia Pulmonary: No pertinent Hx Central Nervous System: No pertinent Hx GI: No pertinent Hx Hemotology/Oncology: No pertinent Hx Hepatobiliary: No pertinent Hx Psychiatric: No pertinent Hx Musculoskeletal: No pertinent Hx Rheumotologic: No pertinent Hx Infectious Disease: No peritnent Hx ENT: No pertinent Hx Renal/: No pertinent Hx Endocrine: No pertinent Hx Dermatology: No pertinent Hx Past Surgical History: Other ("abdominal surgery") Smoker: No Hx (Negative) Alocohol: None Drugs: None Domestic Violence: Neg Review of Systems Constitutional: Weight loss, Other (poor appetite ) Ears, Nose, & Throat: No symptom reported Eyes: No symptom reported Pulmonary/Respiratory: No symptom reported Cardiovascular: No symptom reported Gastrointestinal: Abdominal Pain, Constipation, Other (right quadrant pain) Genitourinary: No symptom reported Musculoskeletal: No symptom reported Skin: No symptom reported Psychiatric: No symptom reported Endocrine: No symptom reported Hemotologic/Lymphatic: No symptom reported H&P Exam Vital Signs Vital Signs Date Time Temp Pulse Resp B/P (MAP) Pulse Ox O2 Delivery O2 Flow Rate FiO2 08/21/24 23:38 65 12 153/114 08/21/24 23:36 Room Air* 0 21 08/21/24 23:35 99.3 96 99.3 General Appeara: Well developed, Well nourished, Normal Appearance Head Exam: Normal inspection Neck Exam: Normal inspection, Non-tender, Normal alignment Eye Exam: bilateral eye Normal inspection, bilateral eye PERRL, bilateral eye EOMI Ear Exam: bilateral ear Auricle normal Nasal Exam: Normal inspection Mouth: Normal Inspection Pulmonary/Respiratory: Normal inspection, Normal breath sounds, Chest non- tender, Lungs clear Cardiovascular/Chest: Normal inspection, Regular rate, Normal Rhythm Peripheral Pulses: 2+ dorsalis pedis (R), 2+ dorsalis pedis (L), 2+ Radial (R), 2+ Radial (L) Abdominal Exam: Normal bowel sounds, Soft Abdominal Pain Onset Location: RUQ, Generalized abdomen Rectal Exam: Deferred Back Exam: Normal inspection Male Genital Exam: Not done [employer] Exam: Normal hearing, Normal speech, PERRL Motor/Sensory: Normal sensory function, Normal motor function Neuro/Mental St: Alert, Oriented Appearance: Appropriate appearance, Appropriate insight Eye contact/ Speech: Cooperative, Good eye contact, Normal speech Thoughts/Psych: Normal thought pattern Skin Exam: Normal inspection, Normal color, Warm/dry Labs/Xrays Labs Test 08/21/24 20:17 Range/Units White Blood Count 7.8 4.4-10.8 10^3/uL Red Blood Count 4.49 L 4.5-5.90 10^6/uL Hemoglobin 13.1 L 13.5-17.5 g/dL Hematocrit 38.8 L 41.0-53.0 % Mean Corpuscular Volume 86.3 80.0-100.0 fL Mean Corpuscular Hemoglobin 29.1 28.0-32.0 pg Mean Corpuscular Hemoglobin Concent 33.7 32.0-36.0 g/dL Red Cell Distribution Width 16.2 H 11.8-14.3 % Platelet Count 304 140-450 10^3/uL Mean Platelet Volume 7.3 6.9-10.8 fL Neutrophils (%) (Auto) 70.9 37.0-80.0 % Lymphocytes (%) (Auto) 16.7 10.0-50.0 % Monocytes (%) (Auto) 9.7 0.0-12.0 % Eosinophils (%) (Auto) 2.1 0.0-7.0 % Basophils (%) (Auto) 0.6 0.0-2.0 % Neutrophils # (Auto) 5.5 1.6-8.6 10 ^3/uL Lymphocytes # (Auto) 1.3 0.4-5.4 10 ^3/uL Monocytes # (Auto) 0.8 0-1.3 10 ^3/uL Eosinophils # (Auto) 0.2 0-0.8 10 ^3/uL Basophils # (Auto) 0 0-0.2 10 ^3/uL Nucleated Red Blood Cells 0.1 % Prothrombin Time 11.4 9.3-11.8 sec Prothrombin Time INR 1.08 0.9-1.15 Sodium Level 138 136-145 mmol/L Potassium Level 3.5 3.5-5.1 mmol/L Chloride Level 108 H 98-107 mmol/L Carbon Dioxide Level 24 20-31 mmol/L Anion Gap 6 5-15 Blood Urea Nitrogen 8 L 9-23 mg/dL Creatinine 0.98 0.700-1.30 mg/dL Glomerular Filtration Rate Calc 81 >90 mL/min BUN/Creatinine Ratio 8.2 L 10.0-20.0 Serum Glucose 109 H 74-106 mg/dL Calcium Level 9.5 8.7-10.4 mg/dL Assessment/Plan Problem List: (1) Kidney mass (2) Acute abdominal pain Plan This is a 73 yo male with known history of hypertension, a fib , hyperlipidemia who presents to the hospital with abdominal pain. Discussed with HMO CM patient has an outpatient appointment with Urology on 08/26 , however patient has intractable abdominal unrelieved by PO medications. Patient will be admitted for 1. Right Renal Mass 2. Intractable Abdominal Pain 3. Hypertension Plan Patient admitted to telemetry Urology consultation Interventional radiology consultation Analgesics as needed for optimal pain management Antihypertensive as needed GI ppx Protonix Discussed all above with patient who verbalizes agreement and understanding of care plan. All questions were answered. Discussed care plan with patient nurse Bridgett SPEAR. Discussed assessment and care plan with supervising MD. Plan discussed with: Patient, Other Code Visit Code Visit Total Time (mins): 45 Additional Comments Additional Comments Additional Comments Patient was seen and evaluated by me. I agree with the assessment and plan as outlined by my nurse practitioner. FLORIDALMA NG Aug 22, 2024 01:33 CASSIE GAINES MD Aug 23, 2024 16:01
[2024-08-22 01:39] LABS: Urine Bacteria None Seen /hpf (None Seen)
[2024-08-22 01:44] LABS: Urine Blood 2+ /uL (Negative); Urine Clarity Clear (Clear); Urine Color Light-Yellow (Yellow); Urine Mucus FEW (None Seen); Urine Protein, UAD Negative (Negative); Urine Specific Gravity 1.008 (1.001-1.035); Urine Squamous Epithelial Cell None Seen /hpf (<5); Urine Urobilinogen Normal (Negative); Urine WBC 4 /HPF (0-3); Urine pH 5.5 (5.0-9.0)
[2024-08-22] MEDS: HYDROcodone-ACET 5/325MG TAB PO PRN (02:19)
[2024-08-22] MEDS: MORPHINE SULFATE INJ 2 MG/ml SYRG IV PRN (03:32)
[2024-08-22] MEDS: HYDROmorphone HCL 2 MG/ML VL/or syr IV PRN (06:28)
[2024-08-22] MEDS: PANTOPRAZOLE 40 MG/10 ML VIAL INJ IV SCH (09:29)
[2024-08-22] MEDS: LACTULOSE 20Gm/30ML SOLN PO SCH (09:29)
[2024-08-22] MEDS: ENOXAPARIN SOD 40 MG/0.4 ML SYRINGE SC SCH (09:39)
[2024-08-22] MEDS: ONDANSETRON HCL 4 MG/2 ML VIAL IV PRN (12:18)
[2024-08-22] MEDS: RIVAROXABAN 20 MG TAB PO SCH (17:35)
[2024-08-22] MEDS ORDERED: PATIENTS OWN MEDICATION (xarelto 20 MG) PO SCH (18:00)
[2024-08-23] VITALS (8 sets, daily range): BP systolic 121–171; BP diastolic 72–87; PULSE 61–95; RESP 12–18; TEMP 97.4–98.1; O2SAT 95–99
--- NOTE | 2024-08-23 10:11 | DVHINCON2 ---
Date of service: Aug 23, 2024 Referring Physician Sherice Reason for Consultation 10.1 cm right renal mass History of Present Illness "I am dying". Patient is referred for evaluation and management of suspicious right renal mass. CT Scan reviewed. He will need Robotic right radical nephrectomy at [facility]. 73 yo mal with a past medical history of HTN, AFib, and HLD who presents with a chief complaint of abdominal pain. Patient states, that he has been experiencing RLQ abdominal pain with associated right kidney pain x 14 days. Patient relays, that he was seen at [facility] on 08/19/24 was discharged follow up with urology outpatient for renal mass. Patient was sent from urgent care yesterday to the ED for pain management and further evaluation. Patient CT abdomen and pelvis on 08/19 resulted: 1. Large suspicious right renal mass measuring up to 111 mm concerning for renal cell carcinoma. Biopsy is not necessary. He will need right radical nephrectomy. Patient reports constipation, poor appetite x 3 weeks with weigh loss of approximately 15-20 lbs. Patient endorses [place] PO provides no pain relief. Patient denies nausea, vomiting, diarrhea, dysuria, hematuria, melena, fevers, chills. Patient admitted for further evaluation and treatment. Home Meds Active Scripts Lactulose (Lactulose) 10 Gm/15 Ml Ale, 20 GM PO TID, #500 ML take it 3 times a day till you have good bowel movements then take it as needed for constipation Prov:VERNON VALDZE MD 08/19/24 Docusate Sodium (Colace) 100 Mg Cap, 1 CAP PO BID for 3 Days, #6 CAP Prov:DOLLY ARANA MD 08/09/24 Metronidazole (Flagyl) 500 Mg Tab, 1 TAB PO TID for 5 Days, #15 TAB Prov:DOLLY ARANA MD 08/09/24 Reported Medications Pravastatin Sodium (PRAVACHOL TABLET) 20 Mg Tb, 1 TAB PO DAILY for HIGH CHOLESTEROL, #30 TAB 5 Refills 04/24/24 Amiodarone Hcl (Amiodarone Hcl) 200 Mg Tab, 200 MG PO DAILY for ARRHYTHMIA 04/24/24 Rivaroxaban (Xarelto Tablet) 20 Mg Tb, 20 MG PO DAILY for A. FIB, TAB 04/24/24 Past Medical History Cardiac: AFIB, HTN, Hyperlipidemia Pulmonary: No pertinent Hx Central Nervous System: No pertinent Hx GI: No pertinent Hx Hemotology/Oncology: No pertinent Hx Hepatobiliary: No pertinent Hx Psychiatric: No pertinent Hx Musculoskeletal: No pertinent Hx Rheumotologic: No pertinent Hx Infectious Disease: No peritnent Hx ENT: No pertinent Hx Renal/: No pertinent Hx Endocrine: No pertinent Hx Dermatology: No pertinent Hx Past Surgical History Hernia surgery Other ("abdominal surgery") Family History: FH: heart disease Allergies: Coded Allergies: No Known Drug Allergy (Verified Allergy, Unknown, 08/19/24) Uncoded Allergies: NONE (Allergy, Unknown, 04/24/24) Home Meds Active Scripts Lactulose (Lactulose) 10 Gm/15 Ml Ale, 20 GM PO TID, #500 ML take it 3 times a day till you have good bowel movements then take it as needed for constipation Prov:VERNON VALDEZ MD 08/19/24 Docusate Sodium (Colace) 100 Mg Cap, 1 CAP PO BID for 3 Days, #6 CAP Prov:DOLLY ARANA MD 08/09/24 Reported Medications Pravastatin Sodium (PRAVACHOL TABLET) 20 Mg Tb, 1 TAB PO DAILY for HIGH CHOLESTEROL, #30 TAB 5 Refills 04/24/24 Amiodarone Hcl (Amiodarone Hcl) 200 Mg Tab, 200 MG PO DAILY for ARRHYTHMIA 04/24/24 Rivaroxaban (Xarelto Tablet) 20 Mg Tb, 20 MG PO DAILY for A. FIB, TAB 04/24/24 Current Medications Current Medications Medications (Trade) Dose Ordered Sig/Fady Route PRN Reason Start Time Stop Time Status Last Admin Patient Own Medication 20 mg PCHS PO 08/22/24 18:00 UNV Rivaroxaban (Xarelto Tablet) 20 mg QPM PO 08/22/24 18:00 08/22/24 17:35 Hydromorphone HCl (Dilaudid Injection) 0.5 mg Q3HPRN PRN IV SEVERE PAIN (7-10 PAIN SCALE) 08/23/24 10:15 UNV Review of Systems Constitutional: Weight loss, Other (poor appetite ) Ears, Nose, & Throat: No symptom reported Eyes: No symptom reported Pulmonary/Respiratory: No symptom reported Cardiovascular: No symptom reported Gastrointestinal: Abdominal Pain, Constipation, Other (right quadrant pain) Genitourinary: No symptom reported Musculoskeletal: No symptom reported Skin: No symptom reported Psychiatric: No symptom reported Endocrine: No symptom reported Hemotologic/Lymphatic: No symptom reported Vital Signs Vital Signs Date Time Temp Pulse Resp B/P (MAP) Pulse Ox O2 Delivery O2 Flow Rate FiO2 08/23/24 08:49 98.1 91 18 150/73 (98) 95 98.1 08/23/24 08:00 Room Air* 0 21 Physical Exam Vital Signs Date Time Temp Pulse Resp B/P (MAP) Pulse Ox O2 Delivery O2 Flow Rate FiO2 08/21/24 23:38 65 12 153/114 08/21/24 23:36 Room Air* 0 21 08/21/24 23:35 99.3 96 99.3 General Appeara: Well developed, Well nourished, Normal Appearance Head Exam: Normal inspection Neck Exam: Normal inspection, Non-tender, Normal alignment Eye Exam: bilateral eye Normal inspection, bilateral eye PERRL, bilateral eye EOMI Ear Exam: bilateral ear Auricle normal Nasal Exam: Normal inspection Mouth: Normal Inspection Pulmonary/Respiratory: Normal inspection, Normal breath sounds, Chest non- tender, Lungs clear Cardiovascular/Chest: Normal inspection, Regular rate, Normal Rhythm Peripheral Pulses: 2+ dorsalis pedis (R), 2+ dorsalis pedis (L), 2+ Radial (R), 2+ Radial (L) Abdominal Exam: Normal bowel sounds, Soft Abdominal Pain Onset Location: RUQ, Generalized abdomen Rectal Exam: Deferred Back Exam: Normal inspection Male 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: Normal hearing, Normal speech, PERRL Motor/Sensory: Normal sensory function, Normal motor function Neuro/Mental St: Alert, Oriented Appearance: Appropriate appearance, Appropriate insight Eye contact/ Speech: Cooperative, Good eye contact, Normal speech Thoughts/Psych: Normal thought pattern Skin Exam: Normal inspection, Normal color, Warm/dry Labs/Diagnostic Data Labs Test 08/22/24 00:45 08/21/24 20:17 Range/Units Urine Color Light-yellow Yellow Urine Clarity Clear Clear Urine pH 5.5 5.0-9.0 Urine Specific [place] 1.008 1.001-1.035 Urine Protein Negative Negative Urine Ketones Negative Negative Urine Blood 2+ H Negative /uL Urine Nitrite Negative Negative Urine Bilirubin Negative Negative Urine Urobilinogen Normal Negative mg/dL Urine Leukocyte Esterase Negative Negative /uL Urine RBC <1 0 - 3 /hpf Urine Microscopic WBC 4 H 0-3 /HPF Urine Squamous Epithelial Cells None seen <5 /hpf Urine Bacteria None seen None Seen /hpf Urine Mucus Few None Seen Urine Glucose Normal Normal mg/dL White Blood Count 7.8 4.4-10.8 10^3/uL Red Blood Count 4.49 L 4.5-5.90 10^6/uL Hemoglobin 13.1 L 13.5-17.5 g/dL Hematocrit 38.8 L 41.0-53.0 % Mean Corpuscular Volume 86.3 80.0-100.0 fL Mean Corpuscular Hemoglobin 29.1 28.0-32.0 pg Mean Corpuscular Hemoglobin Concent 33.7 32.0-36.0 g/dL Red Cell Distribution Width 16.2 H 11.8-14.3 % Platelet Count 304 140-450 10^3/uL Mean Platelet Volume 7.3 6.9-10.8 fL Neutrophils (%) (Auto) 70.9 37.0-80.0 % Lymphocytes (%) (Auto) 16.7 10.0-50.0 % Monocytes (%) (Auto) 9.7 0.0-12.0 % Eosinophils (%) (Auto) 2.1 0.0-7.0 % Basophils (%) (Auto) 0.6 0.0-2.0 % Neutrophils # (Auto) 5.5 1.6-8.6 10 ^3/uL Lymphocytes # (Auto) 1.3 0.4-5.4 10 ^3/uL Monocytes # (Auto) 0.8 0-1.3 10 ^3/uL Eosinophils # (Auto) 0.2 0-0.8 10 ^3/uL Basophils # (Auto) 0 0-0.2 10 ^3/uL Nucleated Red Blood Cells 0.1 % Prothrombin Time 11.4 9.3-11.8 sec Prothrombin Time INR 1.08 0.9-1.15 Sodium Level 138 136-145 mmol/L Potassium Level 3.5 3.5-5.1 mmol/L Chloride Level 108 H 98-107 mmol/L Carbon Dioxide Level 24 20-31 mmol/L Anion Gap 6 5-15 Blood Urea Nitrogen 8 L 9-23 mg/dL Creatinine 0.98 0.700-1.30 mg/dL Glomerular Filtration Rate Calc 81 >90 mL/min BUN/Creatinine Ratio 8.2 L 10.0-20.0 Serum Glucose 109 H 74-106 mg/dL Calcium Level 9.5 8.7-10.4 mg/dL Microbiology Date/Time Source Procedure Growth Status 08/22/24 05:48 Nose MRSA Screen - Final Complete PATIENT: LITO BRISENO RACCT: [id number] UNIT: [id number] : 1950 LOC: ER ROOM / BED: / AGE / SEX: 73 / M ADM STATUS: REG ER SERVICE 0915 ORDERING PHYSICIAN: OTIS VILLALOBOS MD PROCEDURE(s): ABPLIV - CT AB PEL WITH IV CON ONLY REASON: abdominal pain ORDER NUMBER(s): [id number], ACCESSION NUMBER(s): [id number] Exam: CT CT AB PEL WITH IV CON ONLY History: abdominal pain COMPARISON: None Technique: Multidetector spiral CT of the abdomen and pelvis was performed from lung bases to pubic symphysis. Intravenous contrast was administered during this examination. Portal venous imaging was obtained. Axial, coronal and sagittal multiplanar reformats were performed by the technologist on a separate workstation. Radiation Dose : Abdomen/Pelvis: CTDIvol 7.02 mGy, DLP 381.53 mGy*cm. CONTRAST: Type of contrast: Omni 300 Contrast injected: 100 mL Findings: Lung Bases: No acute or significant lung base finding. Normal heart size. No pleural or pericardial effusion. Liver: The liver is normal in size. No focal lesions. Normal hepatic vascular enhancement. Gallbladder and biliary Tree: Unremarkable Spleen: Unremarkable Pancreas: The pancreas is normal in appearance without focal lesions or abnormal enhancement. Adrenal Glands: Unremarkable Kidneys: Heterogeneously enhancing mass lower pole of the right kidney measur ing up to 111 mm. No definite vascular invasion. No hydronephrosis. Right upper pole renal cyst also noted. Bladder: Unremarkable Bowel: The stomach is grossly normal in appearance. Small bowel and colon are normal in caliber and distribution. The appendix is not visualized; however, no secondary findings of acute appendicitis identified. Ascites: Absent Lymphadenopathy: No mesenteric, retroperitoneal or periportal lymphadenopathy. Abdominal wall and Mesentery: Unremarkable. Vasculature: The visualized abdominal aorta is normal in size and caliber. There is calcified atherosclerotic plaque involving the aorta and its branches. Abdominal and pelvic vessels demonstrate normal enhancement. Pelvic Organs: Unremarkable Musculoskeletal: No aggressive focal bony lesions, acute fractures or dislocation. IMPRESSION: 1. Large suspicious right renal mass measuring up to 111 mm concerning for renal cell carcinoma. Urology evaluation and resection is recommended. Lesion would be amenable to CT-guided biopsy if clinically indicated. Radiation optimization: All CT scans at this facility use at least one of these dose optimization techniques: Automated exposure control mA and/or kV adjustment per patient size (includes targeted exams where dose is matched to clinical indication) or iterative reconstruction. HS:Y ATED BY: KERRI ALCARAZ MD DICTATED DATE/TIME: 08/19/24 1037 SIGNED BY: KERRI ALCARAZ MD SIGNED DATE/TIME: 08/19/24 1037 CC: Assessment Right renal mass, 10.1 cm enhancing suspicious for RCCA Plan/Recommendation Patient will need right radical nephrectomy TBA as outpatient Plan discussed with: Patient, Other JESSICA SOMERS MD Aug 23, 2024 10:11
[2024-08-23] MEDS: HYDROmorphone HCL 2 MG/ML VL/or syr IV PRN (10:25)
[2024-08-23] MEDS: hydrALAZINE HCL 20 MG/ML VL IV PRN (16:00)
--- NOTE | 2024-08-23 16:11 | DVHDS2 ---
Discharge Summary Date of Admission Aug 21, 2024 at 21:32 Date of Discharge: Aug 23, 2024 Labs/Diagnostic Data: Laboratory Results Test 08/22/24 00:45 08/21/24 20:17 Urine Color Light-yellow (Yellow) Urine Clarity Clear (Clear) Urine pH 5.5 (5.0-9.0) Urine Specific [place] 1.008 (1.001-1.035) Urine Protein Negative (Negative) Urine Ketones Negative (Negative) Urine Blood 2+ /uL (Negative) Urine Nitrite Negative (Negative) Urine Bilirubin Negative (Negative) Urine Urobilinogen Normal mg/dL (Negative) Urine Leukocyte Esterase Negative /uL (Negative) Urine RBC <1 /hpf (0 - 3) Urine Microscopic WBC 4 /HPF (0-3) Urine Squamous Epithelial Cells None seen /hpf (<5) Urine Bacteria None seen /hpf (None Seen) Urine Mucus Few (None Seen) Urine Glucose Normal mg/dL (Normal) White Blood Count 7.8 10^3/uL (4.4-10.8) Red Blood Count 4.49 10^6/uL (4.5-5.90) Hemoglobin 13.1 g/dL (13.5-17.5) Hematocrit 38.8 % (41.0-53.0) Mean Corpuscular Volume 86.3 fL (80.0-100.0) Mean Corpuscular Hemoglobin 29.1 pg (28.0-32.0) Mean Corpuscular Hemoglobin Concent 33.7 g/dL (32.0-36.0) Red Cell Distribution Width 16.2 % (11.8-14.3) Platelet Count 304 10^3/uL (140-450) Mean Platelet Volume 7.3 fL (6.9-10.8) Neutrophils (%) (Auto) 70.9 % (37.0-80.0) Lymphocytes (%) (Auto) 16.7 % (10.0-50.0) Monocytes (%) (Auto) 9.7 % (0.0-12.0) Eosinophils (%) (Auto) 2.1 % (0.0-7.0) Basophils (%) (Auto) 0.6 % (0.0-2.0) Neutrophils # (Auto) 5.5 10 ^3/uL (1.6-8.6) Lymphocytes # (Auto) 1.3 10 ^3/uL (0.4-5.4) Monocytes # (Auto) 0.8 10 ^3/uL (0-1.3) Eosinophils # (Auto) 0.2 10 ^3/uL (0-0.8) Basophils # (Auto) 0 10 ^3/uL (0-0.2) Nucleated Red Blood Cells 0.1 % Prothrombin Time 11.4 sec (9.3-11.8) Prothrombin Time INR 1.08 (0.9-1.15) Sodium Level 138 mmol/L (136-145) Potassium Level 3.5 mmol/L (3.5-5.1) Chloride Level 108 mmol/L (98-107) Carbon Dioxide Level 24 mmol/L (20-31) Anion Gap 6 (5-15) Blood Urea Nitrogen 8 mg/dL (9-23) Creatinine 0.98 mg/dL (0.700-1.30) Glomerular Filtration Rate Calc 81 mL/min (>90) BUN/Creatinine Ratio 8.2 (10.0-20.0) Serum Glucose 109 mg/dL (74-106) Calcium Level 9.5 mg/dL (8.7-10.4) Other Laboratory Tests 08/21/24 20:17 Brief Hx & Hospital Course: 69 year old male with a known history of recently diagnosed right renal mass highly suspicious for cancer presented to the hospital with right flank pain found to have intractable abdominal pain. Patient was eventually admitted for pain management. Patient was requesting to get surgery done here while he is here. Urology was consulted as there was no availability of robotic radical nephrectomy here patient will be discharged home with a close follow up as an outpatient with Dr. Julián saha as scheduled. Patient needs outpatient radical nephrectomy TISH. Patient also complaining of constipation but he already has Colace senna MiraLax at home. Patient is being discharged under stable condition on Dilaudid p.o.. Condition at Discharge: Stable Final Diagnosis/Problems List 1. Right renal mass highly suspicious for malignancy follow up with the Urology on August 26, Dr. Julián Cintron 2. Paroxysmal AFib currently on is normal sinus rhythm 3. Constipation 4. Loss of appetite secondary to 1. Discharge Disposition: Home with Health Services SNF Discharge Will this Physician continue t: No Discharge Instruct/Medications Diet: Cardiac 2g Na,low cholest Activity: See Comment Activity comment: No driving, no signing legal documents, no playing on heavy machinery while on narcotics Follow Up/Referral: Follow up with the PCP in one week Follow up with the Urology as scheduled on08/26 Medications: Dilaudid p.o. as prescribed New Medications: Hydromorphone Hcl (Dilaudid) 2 Mg Tab 1 TAB PO TID PRN, #20 TAB Continued Medications: Amiodarone Hcl (Amiodarone Hcl) 200 Mg Tab 200 MG PO DAILY for ARRHYTHMIA Docusate Sodium (Colace) 100 Mg Cap 1 CAP PO BID for 3 Days, #6 CAP Lactulose (Lactulose) 10 Gm/15 Ml Ale 20 GM PO TID, #500 ML take it 3 times a day till you have good bowel movements then take it as needed for constipation Pravastatin Sodium (Pravachol Tablet) 20 Mg Tb 1 TAB PO DAILY for HIGH CHOLESTEROL, #30 TAB 5 Refills Rivaroxaban (Xarelto Tablet) 20 Mg Tb 20 MG PO DAILY for A. FIB, TAB Discharge Statement: "Patient was advised to return to the ER or call 911 if any headaches, dizziness, shortness of breath, chest pain, abdominal pain, bleeding, fevers, or worsening of medical condition. Patient was counseled about treatment plan, medications, possible side effects, patientverbalized understanding. All questions were answered to the best of my ability. This discharge took greater then 30 minutes in planning, reviewing documentation, counseling the patient, and discussing with other team members." ASSESSMENT ASSESSMENT Assessment 1. Right renal mass highly suspicious for malignancy follow up with the Urology on August 26, Dr. Julián Cintron 2. Paroxysmal AFib currently on is normal sinus rhythm 3. Constipation 4. Loss of appetite secondary to 1. Date of Service: Aug 23, 2024 Billing Provider: CASSIE GAINES MD Common Visit Codes: NOT BILLABLE CASSIE GAINES MD Aug 23, 2024 16:11
[2024-08-23] MEDS ORDERED: HYDR2TAB58 PO (16:12)
== END 2024-08-23 17:55 | disposition home health service (06) | DRG 688 ==
LOC: ER 19:32 → OVERFLOW 21:32 → TELE-WESTW 21:39
PROVIDERS: ADMIT Nurse Practitioner Family; ATTEND Nurse Practitioner Family
DX: C64.1 Malignant neoplasm of right kidney, except renal pelvis (principal); N28.89 Other specified disorders of kidney and ureter; I10 Essential (primary) hypertension; K59.00 Constipation, unspecified; I48.0 Paroxysmal atrial fibrillation; Z79.899 Other long term (current) drug therapy; Z79.01 Long term (current) use of anticoagulants
CPT/HCPCS: 36415; 80048; 81001; 85025; 85610; 87081; G0378; J2405; J2470

== ENCOUNTER 2024-10-29 20:30 | Emergency (ER) | payer OTHER, MEDICAID ==
[~2024-10-29] VITALS: Ht 177.8 cm; Wt 64.9 kg
[~2024-10-29 20:30] MED LIST changes: +HYDR2TAB58 PO; -METR-344 PO
[2024-10-29 20:45] VITALS: TEMP 97.9
--- NOTE | 2024-10-29 21:30 | ED.PDOC ---
History of Present Illness HPI Comments This is a 58-pycc-eze-male that presents with multiple complaints. Patient has a history of Paroxysmal AFib, HLD, HTN, right renal mass (concern for malignancy, chronic constipation, and 5x hernia repairs. He reports 3x month history of constipation and 40lb weight loss following most recent hernia repair operation by Dr. Francisco. Within the past 3x days, patient endorses on additional onset of generalized weakness and lightheadedness. He also reports recent onset of head, chest, and abdominal pain, palpitations, arm numbness, and feet tinging sensations, yesterday. Previous visits for constipation resulted in discharge on Go Lightly laxatives, with no improvement with use. He denies any shortness of breath, fever, chills, or further associated symptoms. Chief Complaint: General Weakness Time Seen by MD: 21:00 Primary Care Provider: DENISE Reviewed Notes: Nurses Notes, Medications, Allergies Allergies: Coded Allergies: No Known Drug Allergy (Verified Allergy, Unknown, 08/19/24) Uncoded Allergies: NONE (Allergy, Unknown, 04/24/24) Home Meds Active Scripts Hydromorphone Hcl (Dilaudid) 2 Mg Tab, 1 TAB PO TID PRN, #20 TAB Prov:CASSIE GAINES MD 08/23/24 Lactulose (Lactulose) 10 Gm/15 Ml Ale, 20 GM PO TID, #500 ML take it 3 times a day till you have good bowel movements then take it as needed for constipation Prov:VERNON VALDEZ MD 08/19/24 Docusate Sodium (Colace) 100 Mg Cap, 1 CAP PO BID for 3 Days, #6 CAP Prov:DOLLY ARANA MD 08/09/24 Reported Medications Pravastatin Sodium (PRAVACHOL TABLET) 20 Mg Tb, 1 TAB PO DAILY for HIGH CHOLESTEROL, #30 TAB 5 Refills 04/24/24 Amiodarone Hcl (Amiodarone Hcl) 200 Mg Tab, 200 MG PO DAILY for ARRHYTHMIA 04/24/24 Rivaroxaban (Xarelto Tablet) 20 Mg Tb, 20 MG PO DAILY for A. FIB, TAB 04/24/24 Information Source: Patient Mode of Arrival: Ambulatory Severity: Moderate Timing: Months Duration: Since onset Prehospital treatment: None Past Medical History PAST MEDICAL HISTORY: AFIB (Paroxysmal ), High Lipids, HTN Past Medical History (Other): right renal mass (concern for malignancy) chronic constipation Surgical History: Hernia Repair (5x) Family History Family History: Reviewed,noncontributory to illness Social History Smoker: Non-Smoker Alcohol: Occasionally Drugs: Marijuana Lives In: Home All Other Systems: Reviewed and Negative (Comprehensive systems review obtained and negative except for what is stated in the HPI.) Physical Exam General Appearance: No Apparent Distress, Normal HEENT: Normal ENT Inspection, Pharynx Normal, TMs Normal Neck: Full Range of Motion, Non-Tender, Normal, Normal Inspection Respiratory: Chest Non-Tender, Lungs Clear, No Accessory Muscle Use, No Respiratory Distress, Normal Breath Sounds Cardiovascular: No Edema, No JVD, No Murmur, No Gallop, Normal Peripheral Pulses, Regular Rate/Rhythm Breast Exam: Deferred Gastrointestinal: No Organomegaly, Non Tender, No Pulsatile Mass, Normal Bowel Sounds, Soft Genitalia: Deferred Pelvic: Deferred Rectal: Deferred Extremities: No calf tenderness, Normal capillary refill, Normal inspection, Normal range of motion, Non-tender, No pedal edema Musculoskeletal : Apperance: Normal Neurologic: Alert, animal feeder II-XII nml as Tested, No Motor Deficits, Normal Affect, Normal Mood, No Sensory Deficits Cerebellar Function: Normal Reflexes: Normal Skin: Dry, Normal Color, Warm Lymphatic: No Adenopathy Was a procedure done? Was a procedure done?: No EKG EKG : Pulse Rate (adult): 99 [place]: LAD Cardiac Rhythm: NSR Block: None Hypertrophy: None ST: Normal Differential Dx Considerations may include: constipation, bowel obstruction, gastritis, gastroenteritis, SD, PE, ACS, viral syndrome, electrolyte imbalance, dehydration, among others X-Ray, Labs, Meds, VS Vital Signs Date Time Temp Pulse Resp B/P (MAP) Pulse Ox O2 Delivery O2 Flow Rate FiO2 10/29/24 21:30 99 10/29/24 21:11 99 10/29/24 20:45 97.9 104 18 151/93 (112) 98 97.9 Lab Test 10/29/24 21:04 10/29/24 20:45 Range/Units White Blood Count 9.4 4.4-10.8 10^3/uL Red Blood Count 4.86 4.5-5.90 10^6/uL Hemoglobin 14.7 13.5-17.5 g/dL Hematocrit 42.4 41.0-53.0 % Mean Corpuscular Volume 87.3 80.0-100.0 fL Mean Corpuscular Hemoglobin 30.3 28.0-32.0 pg Mean Corpuscular Hemoglobin Concent 34.7 32.0-36.0 g/dL Red Cell Distribution Width 15.9 H 11.8-14.3 % Platelet Count 289 140-450 10^3/uL Mean Platelet Volume 7.4 6.9-10.8 fL Neutrophils (%) (Auto) 70.7 37.0-80.0 % Lymphocytes (%) (Auto) 19.4 10.0-50.0 % Monocytes (%) (Auto) 8.6 0.0-12.0 % Eosinophils (%) (Auto) 0.8 0.0-7.0 % Basophils (%) (Auto) 0.5 0.0-2.0 % Neutrophils # (Auto) 6.7 1.6-8.6 10 ^3/uL Lymphocytes # (Auto) 1.8 0.4-5.4 10 ^3/uL Monocytes # (Auto) 0.8 0-1.3 10 ^3/uL Eosinophils # (Auto) 0.1 0-0.8 10 ^3/uL Basophils # (Auto) 0 0-0.2 10 ^3/uL Nucleated Red Blood Cells 0.1 % Prothrombin Time 10.5 9.3-11.8 sec Prothrombin Time INR 0.99 0.9-1.15 Activated Partial Thromboplast Time 26.2 24.5-34.5 SEC Sodium Level 138 136-145 mmol/L Potassium Level 3.6 3.5-5.1 mmol/L Chloride Level 103 98-107 mmol/L Carbon Dioxide Level 26 20-31 mmol/L Anion Gap 9 5-15 Blood Urea Nitrogen 21 9-23 mg/dL Creatinine 1.17 0.700-1.30 mg/dL Glomerular Filtration Rate Calc 65 >90 mL/min BUN/Creatinine Ratio 17.9 10.0-20.0 Serum Glucose 107 H 74-106 mg/dL Calcium Level 10.3 8.7-10.4 mg/dL Total Bilirubin 0.5 0.2-1.0 mg/dL Aspartate Amino Transferase (AST) 23 13-40 U/L Alanine Aminotransferase (ALT) 14 7-40 U/L Alkaline Phosphatase 91 46-116 U/L Troponin I High Sensitivity 14 </=54 ng/L Total Protein 7.6 5.7-8.2 g/dL Albumin 4.8 3.2-4.8 g/dL Urine Color Light-yellow Yellow Urine Clarity Clear Clear Urine pH 5.0 5.0-9.0 Urine Specific [place] 1.009 1.001-1.035 Urine Protein Negative Negative Urine Ketones Negative Negative Urine Blood Negative Negative /uL Urine Nitrite Negative Negative Urine Bilirubin Negative Negative Urine Urobilinogen Normal Negative mg/dL Urine Leukocyte Esterase Negative Negative /uL Urine RBC <1 0 - 3 /hpf Urine Microscopic WBC 1 0-3 /HPF Urine Squamous Epithelial Cells None seen <5 /hpf Urine Bacteria None seen None Seen /hpf Urine Glucose Normal Normal mg/dL [place] [address] Ph: [phone] DIAGNOSTIC IMAGING Diagnostic Imaging Report : [id number] Signed PATIENT: LITO BRISENO ACCT: [id number] UNIT: [id number] : 1950 LOC: ER ROOM / BED: / AGE / SEX: 74 / M ADM STATUS: REG ER SERVICE 15 ORDERING PHYSICIAN: ERENDIRA MONTOYA MD PROCEDURE(s): HWOCT - HEAD WITHOUT CONTRAST REASON: headache ORDER NUMBER(s): [id number], ACCESSION NUMBER(s): [id number] CT HEAD WITHOUT CONTRAST INDICATION: headache COMPARISON: None TECHNIQUE: CT of the head without intravenous contrast. RADIATION DOSE: CTDIvol: 7.75 mGy, DLP: 1212.45 mGy*cm FINDINGS: There is no evidence of intracranial hemorrhage, infarct, extra-axial collection, mass effect, midline shift, herniation or hydrocephalus. The ventricles, sulci and cisterns are normal. The chadwick-white differentiation is intact. Visualized paranasal sinuses and mastoid air cells are clear. Soft tissues and osseous structures are unremarkable. IMPRESSION: No intracranial abnormality identified. ATED BY: RYAN DENNY MD DICTATED DATE/TIME: 10/30/24 0004 SIGNED BY: RYAN DENNY MD SIGNED DATE/TIME: 10/30/24 0004 CC: [place] [address] Ph: [phone] DIAGNOSTIC IMAGING Diagnostic Imaging Report : [id number] Signed PATIENT: LITO BRISENO ACCT: [id number] UNIT: [id number] : 1950 LOC: ER ROOM / BED: / AGE / SEX: 74 / M ADM STATUS: REG ER SERVICE 15 ORDERING PHYSICIAN: ERENDIRA MONTOYA MD PROCEDURE(s): ABPLIV - CT AB PEL WITH IV CON ONLY REASON: abd pain ORDER NUMBER(s): [id number], ACCESSION NUMBER(s): [id number] Exam: CT CT AB PEL WITH IV CON ONLY History: abd pain COMPARISON: CT CT AB PEL WITH IV CON ONLY on DOS: 08/19/24 Technique: Multidetector spiral CT of the abdomen and pelvis was performed from lung bases to pubic symphysis. Intravenous contrast was administered during this examination. Portal venous imaging was obtained. Axial, coronal and sagittal multiplanar reformats were performed by the technologist on a separate workstation. Radiation Dose : 1. Abdomen/Pelvis: CTDIvol mGy, DLP mGy*cm. CONTRAST: Type of contrast: Contrast injected: ml Contrast ingested: ml Findings: Lung Bases: No abnormality demonstrated. Liver: Liver is normal in size. No focal lesions noted. Normal hepatic vascular enhancement. Gallbladder and Biliary Tree: No abnormality demonstrated. Spleen: No abnormality demonstrated. Pancreas: No abnormality demonstrated. Adrenal Glands: No abnormality demonstrated. Kidneys: Again noted is a large heterogeneously enhancing mass in the lower pole of the right kidney. This measures up to approximately 11.5 x 8.5 cm in maximum dimension in the axial plane on today's study and may have minimally increased in size compared to the prior CT scan from August 2024 where it measured up to approximately 11.2 x 8 cm. No evidence of vascular invasion. No hydronephrosis. Left kidney appears unremarkable. Bladder: Unremarkable Bowel: Stomach appears grossly unremarkable. No abnormally dilated or thick- walled loops of large or small bowel noted. Appendix is not visualized; however, no secondary findings of acute appendicitis identified. Ascites: Absent Lymphadenopathy: No evidence of lymphadenopathy. Abdominal Wall and Mesentery: Unremarkable. Vasculature: Unremarkable. Pelvic Organs: Unremarkable Musculoskeletal: No bony lesions or fracture. Lower lumbar spondylosis. IMPRESSION: Large mass in lower pole of right kidney measuring up to 11.5 cm highly suspicious for renal cell carcinoma. Radiation optimization: All CT scans at this facility use at least one of these dose optimization techniques: automated exposure control mA and/or kV adjust ment per patient size (includes targeted exams where dose is matched to clinical indication) or iterative reconstruction. ATED BY: RYAN DENNY MD DICTATED DATE/TIME: 10/30/2421 SIGNED BY: RYAN DENNY MD SIGNED DATE/TIME: 10/30/2421 CC: Time of 1ST Reevaluation: 21:30 Reevaluation 1ST: Unchanged Patient Education/Counseling: Diagnosis, Treatment, Need For Follow Up Family Education/Counseling: No Family Present Departure 1 Departure Time of Disposition: 00:38 Impression: Primary Impression: Acute abdominal pain Additional Impressions: Kidney mass Generalized weakness Headache Disposition: ADMITTED INPATIENT Admit to: Med Surg Condition: Guarded Discharged With: Self Comments Generalized Weakness with Right Kidney Mass Chief Complaint: Generalized weakness, headache, and abdominal pain History of Present Illness: Patient is a 74-year-old male who presents to the Emergency Department with complaints of generalized weakness, malaise, and a dull headache predominantly affecting the right side. He also reports generalized abdominal pain. The duration and severity of these symptoms are not specified in the initial evaluation. Review of Systems: Constitutional: Positive for generalized weakness and malaise Neurological: Positive for right-sided headache Gastrointestinal: Positive for generalized abdominal pain All other systems reviewed and negative Physical Exam: Physical examination findings not documented Lab Results: CBC: Within normal limits Chemistry Panel: Within normal limits Troponin: 14, within normal range Imaging and Other Relevant Results: Head CT: Normal, no acute intracranial abnormalities Abdominal CT: Large mass identified in the right kidney Medical Decision Making: Summary Statement: 74-year-old male presenting with generalized weakness, headache, and abdominal pain, found to have a large right kidney mass on CT imaging. Problem List: 1. Right kidney mass 2. Generalized weakness 3. Failure to thrive 4. Right-sided headache 5. Abdominal pain Differential Diagnosis: 1. Renal cell carcinoma 2. Metastatic disease 3. Deconditioning 4. Paraneoplastic syndrome 5. Depression ED Course: Patient underwent comprehensive laboratory testing and imaging studies. CT head was normal. Abdominal CT revealed a right kidney mass. Given findings and overall clinical picture, decision made to admit for further evaluation. Assessment and Plan: 1. Right Kidney Mass 11.5cm: - Finding on CT abdomen - Will require further characterization with dedicated renal protocol CT/MRI - Urology consultation during admission 2. Generalized Weakness/Failure to Thrive: - Likely multifactorial, possibly related to underlying kidney mass - Will require comprehensive geriatric assessment - Physical therapy evaluation during admission 3. Disposition: - Admit to Medicine service for further workup and management - Close monitoring of symptoms - Coordination with specialists for comprehensive care plan Billing Information: ICD-10: R53.1 - Weakness ICD-10: D49.511 - Neoplasm of unspecified nature of right kidney ICD-10: R51.9 - Headache, unspecified ICD-10: R10.9 - Unspecified abdominal pain Critical Care Note Critical Care Time?: No Stability Stability form required: No Heart Score Heart Score: Heart Score Response (Comments) Value History N/A 0 EKG N/A 0 Age N/A 0 Risk Factors N/A 0 Troponin N/A 0 Total 0 I personally scribed for ERENDIRA MONTOYA MD ([email or web address]) on 10/29/24 at 21:30. Electronically submitted by Ramon Villarreal ([email or web address]). I personally scribed for ERENDIRA MONTOYA MD ([email or web address]) on 10/30/24 at 00:34. Electronically submitted by Ramon Villarreal ([email or web address]). ERENDIRA MONTOYA MD October 29, 2024 21:30
[2024-10-29 21:37] LABS: Urine Bacteria None Seen /hpf (None Seen)
[2024-10-29 21:37] LABS: Basophils # (auto) 0 10 ^3/uL (0-0.2); Basophils % (auto) 0.5 % (0.0-2.0); Eosinophils # (auto) 0.1 10 ^3/uL (0-0.8); Eosinophils % (auto) 0.8 % (0.0-7.0); Hematocrit 42.4 % (41.0-53.0); Hemoglobin 14.7 g/dL (13.5-17.5); Lymphocytes # (auto) 1.8 10 ^3/uL (0.4-5.4); Lymphocytes % (auto) 19.4 % (10.0-50.0); Mean Corpuscular Hemoglobin 30.3 pg (28.0-32.0); Mean Corpuscular Hgb Conc. 34.7 g/dL (32.0-36.0); Mean Corpuscular Volume 87.3 fL (80.0-100.0); Monocytes # (auto) 0.8 10 ^3/uL (0-1.3); Monocytes % (auto) 8.6 % (0.0-12.0); Neutrophils # (auto) 6.7 10 ^3/uL (1.6-8.6); Neutrophils % (auto) 70.7 % (37.0-80.0); Nucleated Red Blood Cells % 0.1 %; Platelet Count (auto) 289 10^3/uL (140-450); Red Blood Cells 4.86 10^6/uL (4.5-5.90); Red Cell Distribution Width 15.9 % (11.8-14.3); White Blood Cell 9.4 10^3/uL (4.4-10.8)
[2024-10-29 21:46] LABS: Urine Blood Negative /uL (Negative); Urine Clarity Clear (Clear); Urine Color Light-Yellow (Yellow); Urine Protein, UAD Negative (Negative); Urine Specific Gravity 1.009 (1.001-1.035); Urine Squamous Epithelial Cell None Seen /hpf (<5); Urine Urobilinogen Normal (Negative); Urine WBC 1 /HPF (0-3)
[2024-10-29 21:53] LABS: INR 0.99 (0.9-1.15); Partial Thromboplastin Time 26.2 SEC (24.5-34.5); Prothrombin Time 10.5 sec (9.3-11.8)
[2024-10-29 21:55] LABS: Alanine Aminotransferase 14 U/L (7-40); Alkaline Phosphatase 91 U/L (46-116); Anion Gap 9 (5-15); Aspartate Aminotransferase 23 U/L (13-40); BUN/Creatinine Ratio 17.9 (10.0-20.0); Bilirubin, Total 0.5 mg/dL (0.2-1.0); Blood Urea Nitrogen 21 mg/dL (9-23); Calcium 10.3 mg/dL (8.7-10.4); Carbon Dioxide 26 mmol/L (20-31); Chloride 103 mmol/L (98-107); Potassium 3.6 mmol/L (3.5-5.1); Sodium 138 mmol/L (136-145); Total Protein 7.6 g/dL (5.7-8.2)
[2024-10-29 22:53] LABS: Albumin 4.8 g/dL (3.2-4.8); Glucose 107 mg/dL (74-106)
--- NOTE | 2024-10-29 23:52 | ECG ---
[facility] Test Date: 2024-10-29 Test Time: 21:11:20 Pat Name: LITO BRISENO Department: ED Room: Gender: M [employer]: : 1950 Requested By: ERENDIRA MONTOYA Order Number: [id number] Reading MD: Compa Priest Measurements Intervals [place] Rate: 99 P: 60 AR: 185 QRS: -46 QRSD: 82 T: 57 QT: 341 QTc: 438 Interpretive Statements Sinus rhythm Left axis deviation Abnormal inferior Q waves Consider anterior infarct Electronically Signed On 11-04-2024 11:24:18 PDT by Compa Priest Please click the below link to view image of tracing.
--- NOTE | 2024-10-30 00:06 | DVH ---
CT HEAD WITHOUT CONTRAST INDICATION: headache COMPARISON: None TECHNIQUE: CT of the head without intravenous contrast. RADIATION DOSE: CTDIvol: 7.75 mGy, DLP: 1212.45 mGy*cm FINDINGS: There is no evidence of intracranial hemorrhage, infarct, extra-axial collection, mass effect, midli ne shift, herniation or hydrocephalus. The ventricles, sulci and cisterns are normal. The chadwick-white differentiation is intact. Visualized paranasal sinuses and mastoid air cells are clear. Soft tissues and osseous structures are unremarkable. IMPRESSION: No intracranial abnormality identified.
--- NOTE | 2024-10-30 00:25 | DVH ---
Exam: CT CT AB PEL WITH IV CON ONLY History: abd pain COMPARISON: CT CT AB PEL WITH IV CON ONLY on DOS: 08/19/24 Technique: Multidetector spiral CT of the abdomen and pelvis was performed from lung bases to pubic s ymphysis. Intravenous contrast was administered during this examination. Portal venous imaging was obtained. Axial, coronal and sagittal multiplanar reformats were performed by the technologist on a separate workstation. Radiation Dose : 1. Abdomen/Pelvis: CTDIvol mGy, DLP mGy*cm. CONTRAST: Type of contrast: Contrast injected: ml Contrast ingested: ml Findings: Lung Bases: No abnormality demonstrated. Liver: Liver is normal in size. No focal lesions noted. Normal hepatic vascular enhancement. Gallbladder and Biliary Tree: No abnormality demonstrated. Spleen: No abnormality demonstrated. Pancreas: No abnormality demonstrated. Adrenal Glands: No abnormality demonstrated. Kidneys: Again noted is a large heterogeneously enhancing mass in the lower pole of the right kidney. This measures up to approximately 11.5 x 8.5 cm in maximum dimension in the axial plane on today's s tudy and may have minimally increased in size compared to the prior CT scan from August 2024 where it measured up to approximately 11.2 x 8 cm. No evidence of vascular invasion. No hydronephrosis. Left kidney appears unremarkable. Bladder: Unremarkable Bowel: Stomach appears grossly unremarkable. No abnormally dilated or thick-walled loops of large or small bowel noted. Appendix is not visualized; however, no secondary findings of acute appendicitis identified. Ascites: Absent Lymphadenopathy: No evidence of lymphadenopathy. Abdominal Wall and Mesentery: Unremarkable. Vasculature: Unremarkable. Pelvic Organs: Unremarkable Musculoskeletal: No bony lesions or fracture. Lower lumbar spondylosis. IMPRESSION: Large mass in lower pole of right kidney measuring up to 11.5 cm highly suspicious for renal cell carcinoma. Radiation optimization: All CT scans at this facility use at least one of these dose optimization vicky hniques: automated exposure control mA and/or kV adjustment per patient size (includes targeted exam s where dose is matched to clinical indication) or iterative reconstruction.
[2024-10-30] MEDS: IOHEXOL 300 MG/ML 100ML BOTTLE IJ ONE (01:09)
[2024-10-30] MEDS: SODIUM CHLORIDE 0.9% 1,000 ML IVB ONE (01:12)
[2024-10-30] MEDS: MORPHINE SULFATE 4 MG/ML SYR/VIAL IV ONE (01:19)
[2024-10-30] MEDS: ONDANSETRON HCL 4 MG/2 ML VIAL IV ONE (01:19)
[2024-10-30 01:32] VITALS: PULSE 61; RESP 20; O2SAT 100
--- NOTE | 2024-10-30 03:17 | DVHINCON2 ---
[facility] 10/30/24 0317: Date of service: October 30, [address] Candelario Reason for Consultation Medical Management History of Present Illness Mr. Lin Neely is a [id number]-male that presents with multiple complaints. Patient has a history of Paroxysmal AFib, HLD, HTN, right renal mass (concern for malignancy, chronic constipation, and 5x hernia repairs. He reports 3x month history of constipation and 40lb weight loss following most recent hernia repair operation by Dr. Francisco. Within the past 3x days, patient endorses on additional onset of generalized weakness and lightheadedness. He also reports recent onset of head, chest, and abdominal pain, palpitations, arm numbness, and feet tinging sensations, yesterday. Previous visits for constipation resulted in discharge on Go Lightly laxatives, with no improvement with use. Patient report last bowel movement was 3 days ago. Patient reports he had his urology surgical procedure (robotic radical nephrectomy) scheduled for next week however he cancelled the surgical procedure yesterday morning. Patient reports he does want the surgical procedure and is requesting rescheduling. He denies any chest pain, shortness of breath, fever, chills, nausea, vomiting, chest pain, palpitations, dysuria, hematuria, melena, hematochezia or further associated symptoms. Past Medical History Hypertension, Atrial fibrillation on anticoagulation, hyperlipidemia, right renal mass. Past Surgical History Hernia repairs x5 Family History: FH: heart disease Family History none contributory Social History none contributory Allergies: Coded Allergies: No Known Drug Allergy (Verified Allergy, Unknown, 08/19/24) Uncoded Allergies: NONE (Allergy, Unknown, 04/24/24) Home Meds Active Scripts Hydromorphone Hcl (Dilaudid) 2 Mg Tab, 1 TAB PO TID PRN, #20 TAB Prov:CASSIE GAINES MD 08/23/24 Lactulose (Lactulose) 10 Gm/15 Ml Ale, 20 GM PO TID, #500 ML take it 3 times a day till you have good bowel movements then take it as needed for constipation Prov:VERNON VALDEZ MD 08/19/24 Docusate Sodium (Colace) 100 Mg Cap, 1 CAP PO BID for 3 Days, #6 CAP Prov:DOLLY ARNAA MD 08/09/24 Reported Medications Pravastatin Sodium (PRAVACHOL TABLET) 20 Mg Tb, 1 TAB PO DAILY for HIGH CHOLESTEROL, #30 TAB 5 Refills 04/24/24 Amiodarone Hcl (Amiodarone Hcl) 200 Mg Tab, 200 MG PO DAILY for ARRHYTHMIA 04/24/24 Rivaroxaban (Xarelto Tablet) 20 Mg Tb, 20 MG PO DAILY for A. FIB, TAB 04/24/24 Vital Signs Vital Signs Date Time Temp Pulse Resp B/P (MAP) Pulse Ox O2 Delivery O2 Flow Rate FiO2 10/30/24 01:32 61 20 100 Room Air* 0 21 10/30/24 01:19 156/73 10/29/24 20:45 97.9 97.9 Physical Exam HEENT pupils are reactive Neck is supple CV is S1-S2 regular rate and rhythm Respiratory diminished breath sounds bases GI positive bowel sound Extremity no edema HYGIENE COORDINATOR no motor deficit Labs/Diagnostic Data Labs Test 10/29/24 21:04 10/29/24 20:45 Range/Units White Blood Count 9.4 4.4-10.8 10^3/uL Red Blood Count 4.86 4.5-5.90 10^6/uL Hemoglobin 14.7 13.5-17.5 g/dL Hematocrit 42.4 41.0-53.0 % Mean Corpuscular Volume 87.3 80.0-100.0 fL Mean Corpuscular Hemoglobin 30.3 28.0-32.0 pg Mean Corpuscular Hemoglobin Concent 34.7 32.0-36.0 g/dL Red Cell Distribution Width 15.9 H 11.8-14.3 % Platelet Count 289 140-450 10^3/uL Mean Platelet Volume 7.4 6.9-10.8 fL Neutrophils (%) (Auto) 70.7 37.0-80.0 % Lymphocytes (%) (Auto) 19.4 10.0-50.0 % Monocytes (%) (Auto) 8.6 0.0-12.0 % Eosinophils (%) (Auto) 0.8 0.0-7.0 % Basophils (%) (Auto) 0.5 0.0-2.0 % Neutrophils # (Auto) 6.7 1.6-8.6 10 ^3/uL Lymphocytes # (Auto) 1.8 0.4-5.4 10 ^3/uL Monocytes # (Auto) 0.8 0-1.3 10 ^3/uL Eosinophils # (Auto) 0.1 0-0.8 10 ^3/uL Basophils # (Auto) 0 0-0.2 10 ^3/uL Nucleated Red Blood Cells 0.1 % Prothrombin Time 10.5 9.3-11.8 sec Prothrombin Time INR 0.99 0.9-1.15 Activated Partial Thromboplast Time 26.2 24.5-34.5 SEC Sodium Level 138 136-145 mmol/L Potassium Level 3.6 3.5-5.1 mmol/L Chloride Level 103 98-107 mmol/L Carbon Dioxide Level 26 20-31 mmol/L Anion Gap 9 5-15 Blood Urea Nitrogen 21 9-23 mg/dL Creatinine 1.17 0.700-1.30 mg/dL Glomerular Filtration Rate Calc 65 >90 mL/min BUN/Creatinine Ratio 17.9 10.0-20.0 Serum Glucose 107 H 74-106 mg/dL Calcium Level 10.3 8.7-10.4 mg/dL Total Bilirubin 0.5 0.2-1.0 mg/dL Aspartate Amino Transferase (AST) 23 13-40 U/L Alanine Aminotransferase (ALT) 14 7-40 U/L Alkaline Phosphatase 91 46-116 U/L Troponin I High Sensitivity 14 </=54 ng/L Total Protein 7.6 5.7-8.2 g/dL Albumin 4.8 3.2-4.8 g/dL Urine Color Light-yellow Yellow Urine Clarity Clear Clear Urine pH 5.0 5.0-9.0 Urine Specific [place] 1.009 1.001-1.035 Urine Protein Negative Negative Urine Ketones Negative Negative Urine Blood Negative Negative /uL Urine Nitrite Negative Negative Urine Bilirubin Negative Negative Urine Urobilinogen Normal Negative mg/dL Urine Leukocyte Esterase Negative Negative /uL Urine RBC <1 0 - 3 /hpf Urine Microscopic WBC 1 0-3 /HPF Urine Squamous Epithelial Cells None seen <5 /hpf Urine Bacteria None seen None Seen /hpf Urine Glucose Normal Normal mg/dL Assessment This is a [id number]-male that presents with multiple complaints. Patient has a history of Paroxysmal AFib, HLD, HTN, right renal mass (concern for malignancy, chronic constipation, and 5x hernia repairs. He reports 3x month history of constipation and 40lb weight loss following most recent hernia repair operation by Dr. Francisco. Within the past 3x days, patient endorses on additional onset of generalized weakness and lightheadedness. He also reports recent onset of head, chest, and abdominal pain, palpitations, arm numbness, and feet tinging sensations, yesterday. Previous visits for constipation resulted in discharge on Go Lightly laxatives, with no improvement with use. Patient report last bowel movement was 3 days ago. Patient reports he had his urology surgical procedure (robotic radical nephrectomy) scheduled for next week however he cancelled the surgical procedure yesterday morning. Patient reports he now does want the surgical procedure. He denies any shortness of breath, fever, chills, nausea, vomiting, chest pain, palpitations, dysuria, hematuria, melena, hematochezia or further associated symptoms. Patients ED workup was unremarkable labs WBC 9.4, H&H 14.7/42.4, Platelets 289, Na 138, K 3.6, BUN 21/1.17, Urinalysis negative for nitrite, leukocyte esterase. Patient CT abdomen/pelvis w iv contrast resulted: Large mass in lower pole of right kidney measuring up to 11.5 cm highly suspicious for renal cell carcinoma. CT head wo contrast resulted : no intracranial abnormality identified. Problems(with codes): (1) Generalized weakness (2) Kidney mass (3) Headache Plan/Recommendation Patients ED workup was unremarkable labs WBC 9.4, H&H 14.7/42.4, Platelets 289, Na 138, K 3.6, BUN 21/1.17, Urinalysis negative for nitrite, leukocyte esterase. Patient CT abdomen/pelvis w iv contrast resulted: Large mass in lower pole of right kidney measuring up to 11.5 cm highly suspicious for renal cell carcinoma. CT head wo contrast resulted : no intracranial abnormality identified. Patient denies any chest pain, dyspnea, BP 159/70, Heart rate 60-70's respirations 18, 02 saturations 100% on room air. Patient walked to the bathroom with steady gait no distress noted. Recommendation for outpatient follow up with urology for rescheduling of outpatient Robotic Radical Nephrectomy surgical procedure and follow up with PCP Dr. Zheng. I spoke with [facility] telephone operator receptionist Sophia who will follow up for outpatient rescheduling with urology and a home health safety evaluation outpatient follow up. Discussed all above with ED physician. Discussed all above with patient who verbalizes agreement and understanding of plan/recommendations. Plan discussed with: Patient, Other CASSIE GAINES MD 10/30/24 1413: Family History: FH: heart disease Allergies: Coded Allergies: No Known Drug Allergy (Verified Allergy, Unknown, 08/19/24) Uncoded Allergies: NONE (Allergy, Unknown, 04/24/24) Home Meds Active Scripts Hydromorphone Hcl (Dilaudid) 2 Mg Tab, 1 TAB PO TID PRN, #20 TAB Prov:CASSIE GAINES MD 08/23/24 Lactulose (Lactulose) 10 Gm/15 Ml Ale, 20 GM PO TID, #500 ML take it 3 times a day till you have good bowel movements then take it as needed for constipation Prov:VERNON VALDEZ MD 08/19/24 Docusate Sodium (Colace) 100 Mg Cap, 1 CAP PO BID for 3 Days, #6 CAP Prov:DOLLY ARANA MD 08/09/24 Reported Medications Pravastatin Sodium (PRAVACHOL TABLET) 20 Mg Tb, 1 TAB PO DAILY for HIGH CHOLESTEROL, #30 TAB 5 Refills 04/24/24 Amiodarone Hcl (Amiodarone Hcl) 200 Mg Tab, 200 MG PO DAILY for ARRHYTHMIA 04/24/24 Rivaroxaban (Xarelto Tablet) 20 Mg Tb, 20 MG PO DAILY for A. FIB, TAB 04/24/24 Additional Comments Additional Comments Additional Comments Agree with the assessment and plan as outlined by my nurse practitioner. Patient needs urgent follow up with the Urology with a in one week. [facility] case manager Sophia has been notified who will arrange urology appointment urgently. [facility] October 30, 2024 03:17 CASSIE GAINES MD October 30, 2024 14:13
[2024-10-30] MEDS: LORazepam 0.5 MG TAB PO ONE (03:22)
[2024-10-30 03:24] VITALS: BP 159/70; PULSE 70; RESP 16; O2SAT 94
== END 2024-10-30 04:04 | disposition home or self-care (01) ==
LOC: ER 20:30
DX: N28.89 Other specified disorders of kidney and ureter (principal); R10.84 Generalized abdominal pain; R53.1 Weakness; R51.9 Headache, unspecified; F12.90 Cannabis use, unspecified, uncomplicated; I10 Essential (primary) hypertension; E78.5 Hyperlipidemia, unspecified; I48.0 Paroxysmal atrial fibrillation; Z98.890 Other specified postprocedural states
CPT/HCPCS: 36415; 70450; 74177; 80053; 81001; 84484; 85025; 85610; 85730; 93005; 96361; 96374; 96375; 99285; J2270; J2405; J7030; Q9967